=== PATIENT | female | born 1965 | race Caucasian/White ===

== ENCOUNTER 2023-08-08 07:47 | Outpatient (OUT) | payer BC, SELFPAY ==
[2023-08-08 10:14] LABS: Estimated Average Glucose 126 mg/dL
--- OUTSIDE RECORDS SUMMARY | 2023-08-31 00:03 | XMS_ITS | CCD ---
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 Role Phone JOSIE JASSO Attending Unavailable ROMERO, JOSIE Admitting Unavailable ROMERO, JOSIE Primary Care Unavailable ROMERO, JOSIE Consulting Unavailable ROMERO, JOSIE Attending Unavailable ROMERO, JOSIE Admitting Unavailable DR MELISA LEIGH V Consulting Unavailable ROMERO, JOSIE Primary Care Unavailable ROMERO, JOSIE Consulting Unavailable ROMERO, JOSIE Consulting Unavailable ROMERO, JOSIE Attending Unavailable ROMERO, JOSIE Admitting Unavailable ROMERO, JOSIE Primary Care Unavailable ROMERO, JOSIE Attending Unavailable ROMERO, JOSIE Admitting Unavailable ROMERO, JOSIE Primary Care Unavailable Problems Problem Classification Problem Date Documented Da te Episodic/Chronic Other screening for suspected conditions (not mental disorders or infectious disease) (8 sources) Encounter for screening mammogram for malignant neoplasm of breast; Translations: [Encounter for screening for malignant neoplasm of cervix] Onset: 08-11-2022 Episodic Residual codes; unclassified (1 source) Family history of malignant neoplasm of trachea, bronchus and lung; Translations: [FAM HX MALIG NEOPLSM TRACH BRON LNG] Onset: 09-10-2022 Episodic Residual codes; unclassified (1 source) Family history of malignant neoplasm of other organs or systems; Translations: [FAM HX MALIG NEOPLASM OTH ORGN/SYS] Onset: 09-10-2022 Episodic Thyroid disorders (4 sources) Hypothyroidism, unspecified; Translations: [HYPOTHYROIDISM UNSPECIFIED] Onset: 11-10-2022 Chronic Results Test Name Value Interpretation Reference Range Facil ity FREE THYROXINE INDEX T7on FTI 2.87 Normal 1.30-4.50 [facility] Comment on above: Performed By: #### T , T7 #### [facility] [address] [address] [address] Mirlande Dumas T3U 33.0 % Normal 30.0-39.0 [facility] Comment on above: Performed By: #### T SH, T7 #### [facility] [address] [place] [address] Dr. Mirlande Dumas T4 [Mass/Vol] 8.70 ug/dL Normal 4.80-13.90 [facility] Comment on above: Performed By: #### T SH, T7 #### [facility] [address] [place] [address] Dr. Mirlande Dumas TSHon 11-10-2022 TSH 1.531 uIU/mL Normal 0.358-3.740 The [facility] Comment on above: Performed By: #### T SH, T7 #### [facility] [address] [place] [address] Dr. Mirlande Dumas MG MAMM SCREEN 3D CUCA CADon 09-08-2022 MG MAMM SCREEN 3D CUCA CAD Patient: FABIAN DE LA CRUZ Exam Date: 09/08/2022 : 1965 Gender:F Ordering : JOSIE JASSO [facility] Admission #: [id number] Family : Order #: [id number] CLICK HERE TO VIEW EXAM RADIOLOGY REPORT PROCEDURE: MAMMOGRAM SCREENING 3D BILATERAL CAD COMPARISON: MG MAMM SCREEN CUCA W CAD, 09/03/2020. MG MAMM SCREEN 3D CUCA CAD, 09/07/2021. INDICATIONS: Screening mammography Calculator Name NCI Breast Cancer Risk Assessment Tool 5 Year Breast Cancer Risk 1.20% Lifetime Breast Cancer Risk 6.40% Personal Breast Cancer No Personal Ovarian Cancer No Treatments None Family Cancers Mother with lung cancer at age 84; Sister with skin cancer at age 50; Father with skin cancer at age 60. LOCATION: [facility] BREAST COMPOSITION: Heterogeneously dense,which may obscure small masses. FINDINGS: DIAGNOSTIC CATEGORY 1--NEGATIVE. NO CHANGE FROM COMPARISON ASSESSMENT. Scattered benign-appearing calcifications are present. Scattered benign-appearing lymph nodes are present. RIGHT BREAST: No significant suspicious finding. LEFT BREAST: No significant suspicious finding. RECOMMENDATIONS: ROUTINE MAMMOGRAM AND CLINICAL EVALUATION IN 12 MONTHS. PLEASE NOTE: A NORMAL MAMMOGRAM DOES NOT EXCLUDE THE POSSIBILITY OF BREAST CANCER. A CLINICALLY SUSPICIOUS PALPABLE LUMP SHOULD BE BIOPSIED. Dictated by: Melisa Leigh MD on 09/09/2022 at 08:08 Approved by: Melisa Leigh MD on 09/09/2022 at 08:[address] [facility] l PAP ACOG PANEL 2: 30 to 65on 08-18-2022 . . Normal [facility] Comment on above: Result Comment: Perf ormed at: WB Performed By: #### 4 [id number] #### [facility] [address] [address] [address] Mirlande Dumas Age Gdln ACOG Testing 30-65 Normal [facility] Comment on above: Performed By: #### 4 [id number] #### [facility] [address] [place] [address] Dr. Mirlande Dumas DIAGNOSIS: Comment Normal [facility] Comment on above: Result Comment: NEGA TIVE FOR INTRAEPITHELIAL LESION OR MALIGNANCY. Performed at: WB Performed By: #### 4 [id number] #### [facility] [address] [place] [address] Dr. Mirlande Dumas HPV Aptima Positive Abnormal Negative [facility] Comment on above: Result Comment: This nucleic acid amplification test detects fourteen high-risk HPV types (16,18,31,33,35,39,45,51,52,56,58,59,66,68) without differentiation. Performed at: =G Performed By: #### 4 [id number] #### [facility] [address] [place] [address] Dr. Mirlande Dumas HPV Genotype 16 Negative Normal Negative The [facility] Comment on above: Performed By: #### 4 [id number] #### [facility] [address] [address] [address] Mirlande Dumas HPV Genotype 18,45 Negative Normal Negative The [facility] Comment on above: Performed By: #### 4 [id number] #### [facility] [address] [place] [address] Dr. Mirlande uDmas HPV Genotype Reflex Comment Normal [facility] Comment on above: Result Comment: Osito k[place], see HPV Genotype results. Performed at: WB Performed By: #### 4 [id number] #### [facility] [address] [address] [address] Mirlande Dumas Methodology: Comment Normal [facility] Comment on above: Result Comment: This liquid based ThinPrep(R) pap test was screened with the use of an image guided system. Performed at: WB Performed By: #### 4 [id number] #### [facility] [address] [address] [address] Mirlande Dumas Note: Comment Normal [facility] Comment on above: Result Comment: The Pap smear is a screening test designed to aid in the detection of premalignant and malignant conditions of the uterine cervix. It is not a diagnostic procedure and should not be used as the sole means of detecting cervical cancer. Both false-positive and false-negative reports do occur. . Performed at: WB Performed By: #### 4 [id number] #### [facility] [address] [place] [address] Dr. Mirlande Dumas Performed by: Comment Normal [facility] Comment on above: Result Comment: Marita Caldera, Environmental Aid (ASCP) Performed at: WB Performed By: #### 4 [id number] #### [facility] [address] [place] [address] Dr. Mirlande Dumas Specimen adequacy: Comment Normal [facility] Comment on above: Result Comment: Sati sfactory for evaluation. Endocervical and/or squamous metaplastic cells (endocervical component) are present. Performed at: WB Performed By: #### 4 [id number] #### [facility] [address] [place] [address] Dr. Mirlande Dumas Encounters Encounter Date Encounter Type Care Provider Facility Start: 11-10-2022 End: 11-11-2022 ambulatory JOSIE JASSO Facility:[facility]1 Start: 09-08-2022 End: 09-09-2022 ambulatory JOSIE JASSO Facility:[facility] Start: 08-11-2022 End: 08-11-2022 ambulatory JOSIE JASSO Facility:[facility]1 Start: 02-11-2022 ambulatory JOSIE JASSO Facility: [facility]1 Payers Date Payer Category Payer Unknown [id number] 2.16.84 [id number] 1965 Unknown [id number] 2.16.84 [id number] 1965 Unknown [id number] 2.16.84 [id number] 1965 Unknown [id number] 2.16.84 [id number] 1961 Self-pay [id number] 1961 Unknown [id number] Summary Purpose Family History No Family History Records Found Advance Directives No Advanced Directives Records Found Additional Source Comments INFORMATION SOURCE (unrecogn ized section and content) DATE CREATED AUTHOR 11/16/2022 [facility] FOR RECORDS PERTAINING TO PATIENTS WHO ARE OR HAVE BEEN ENROLLED IN A CHEMICAL DEPENDENCY/SUBSTANCEABUSE PROGRAM, SOME INFORMATION MAY BE OMITTED. This clinical summary was aggregated from multiple sources. Caution should be exercised in using it in the provision of clinical care. This summary normalizes information from multiple sources, and as a consequence, information in this document may materially change the coding, format and clinical context of patient data. In addition, data may be omitted in some cases. CLINICAL DECISIONS SHOULD BE BASED ON THE PRIMARY CLINICAL RECORDS. [facility] [employer] [facility]. provides no warranty or guarantee of the accuracy or completeness of information in this document.
== END 2023-08-08 07:48 | disposition home or self-care (01) ==
LOC: LAB 07:48
PROVIDERS: PCP Nurse Practitioner Family; Visit Provider Nurse Practitioner Family
DX: E11.9 Type 2 diabetes mellitus without complications (principal)
CPT/HCPCS: 36415; 83036

== ENCOUNTER 2023-08-10 14:30 | Outpatient (REF) | payer BC, SELFPAY ==
[2023-08-13 20:07] LABS: Age Gdln ACOG Testing Note (.); HPV Aptima Negative (Negative); IGP, Aptima HPV, rfx 16/18,45 Note (.)
== END 2023-08-10 14:31 | disposition home or self-care (01) ==
LOC: LAB 14:30
PROVIDERS: PCP Nurse Practitioner Family; Visit Provider Nurse Practitioner Family
DX: Z01.419 Encounter for gynecological examination (general) (routine) without abnormal findings (principal)
CPT/HCPCS: 87624; G0145

== ENCOUNTER 2023-09-21 07:49 | Outpatient (OUT) | payer BC, SELFPAY ==
--- OUTSIDE RECORDS SUMMARY | 2023-09-21 07:51 | XMS_ITS | CCD ---
Author Name Unknown Address [address] [place] [address] Organization [facility] Care Team Providers Care Rn Telephonic Name Role Phone JOSIE JASSO Attending Unavailable [...] INDEX T7on FTI 2.87 Normal 1.30-4.50 [facility] Comment on above: Performed By: #### TSH, T7 #### [facility] [address] [address] [address] Mirlande Dumas T3U 33.0 % Normal 30.0-39.0 [facility] Comment on above: Performed By: #### TSH, T7 #### [facility] [address] [address] [address] Mirlande Dumas T4 [Mass/Vol] 8.70 ug/dL Normal 4.80-13.90 [facility] Comment on above: Performed By: #### TSH, T7 #### [facility] [address] [address] [address] Mirlande Dumas TSHon 11-10-2022 TSH 1.531 uIU/mL Normal 0.358-3.740 [facility] Comment on above: Performed By: #### TSH, T7 #### [facility] [address] [place] [address] Dr. Mirlande Dumas MG MAMM SCREEN 3D CUCA CADon 09-08-2022 MG MAMM SCREEN 3D CUCA CAD Patient: FABIAN DE LA CRUZ Exam Date: 09/08/2022 : 1965 Gender:F Ordering : JOSIE JASSO [facility] Admission #: [id number] Family : Order #: [id number] CLICK HERE TO VIEW EXAM RADIOLOGY REPORT [...] skin cancer at age 58. LOCATION: [facility] BREAST COMPOSITION: Heterogeneously dense,which may obscure small [...] Leigh MD on 09/09/2022 at 08:10 Normal [facility] PAP ACOG PANEL 2: 30 to 65on 08-18-2022 . . Normal [facility] Comment on above: Result Comment: Performed at: WB Performed By: #### 4 [id number] #### [facility] [address] [place] [address] Dr. Mirlande Dumas Age Gdln ACOG Testing 30-65 Normal [facility] Comment on above: Performed By: #### [id number] #### [facility] [address] [place] [address] Dr. Mirlande Dumas DIAGNOSIS: Comment Normal [facility] Comment on above: Result Comment: NEGATIVE FOR INTRAEPITHE LIAL LESION OR MALIGNANCY. Performed at: WB Performed By: #### 4 [id number] #### [facility] [address] [place] [address] Dr. Mirlande Dumas HPV Aptima Positive Abnormal Negative [facility] Comment on above: Result Comment: This nucleic acid amplif ication test detects fourteen high-risk HPV types (16,18,31,33,35,39,45,51,52,56,58,59,66,68) without differentiation. Performed at: =G Performed By: #### 4 [id number] #### [facility] [address] [place] [address] Dr. Mirlande Dumas HPV Genotype 16 Negative Normal Negative [facility] Comment on above: Performed By: #### [id number] #### [facility] [address] [place] [address] Dr. Mirlande Dumas HPV Genotype 18,45 Negative Normal Negative [facility] Comment on above: Performed By: #### [id number] #### [facility] [address] [place] [address] Dr. Mirlande Dumas HPV Genotype Reflex Comment Normal [facility] Comment on above: Result Comment: Criteria met, see HPV Ge notype results. Performed at: WB Performed By: #### 4 [id number] #### [facility] [address] [place] [address] Dr. Mirlande Dumas Methodology: Comment Normal [facility] Comment on above: Result Comment: This liquid based ThinPr ep(R) pap test was screened with the use of an image guided system. Performed at: WB Performed By: #### 4 [id number] #### [facility] [address] [address] [address] Mirlande Dumas Note: Comment Normal [facility] Comment on above: Result Comment: The Pap smear is a scree erasmo test designed to aid in the detection of premalignant and malignant conditions of the uterine cervix. It is not a diagnostic procedure and should not be used as the sole means of detecting cervical cancer. Both false-positive and false-negative reports do occur. . Performed at: WB Performed By: #### 4 [id number] #### [facility] [address] [place] [address] Dr. Mirlande Dumas Performed by: Comment Normal [facility] Comment on above: Result Comment: Marita Caldera, Cytotech nologist (ASCP) Performed at: WB Performed By: #### 4 [id number] #### [facility] [address] [address] [address] Mirlande Dumas Specimen adequacy: Comment [facility] Comment on above: Result Comment: Satisfactory for evaluat ion. Endocervical and/or squamous metaplastic cells (endocervical component) are present. Performed at: WB Performed By: #### 4 [id number] #### [facility] [address] [address] [address] Mirlande Dumas Encounters Encounter Date Encounter Type Care Provider Facility Start: 11-10-2022 End: 11-11-2022 ambulatory JOSIE BANNER Facility:[facility]1 Start: 09-08-2022 End: 09-09-2022 ambulatory JOSIE BANNER Facility:[facility]1 Start: 08-11-2022 End: 08-11-2022 ambulatory JOSIE BANNER Facility:[facility]1 Start: 02-11-2022 ambulatory JOSIE BANNER Facility: [facility]1 Payers Date Payer Category Payer Unknown [id number] 2.16.84 [id number] 1965 Unknown [id number] 2.16.84 [id number] 1965 Unknown [id number] 2.16.84 [id number] 1965 Unknown [id number] 2.16.84 [id number] 1961 Self-pay [id number] 1961 Unknown [id number] Summary Purpose Family History No Family History Records Found Advance Directives No Advanced Directives Records Found Additional Source Comments INFORMATION SOURCE (unrecogn ized section and content) DATE CREATED AUTHOR 11/16/2022 [facility] FOR RECORDS PERTAINING TO PATIENTS WHO ARE [...] BE BASED ON THE PRIMARY CLINICAL RECORDS. [facility]. provides no warranty or guarantee of the accuracy or completeness of information in this document.
--- NOTE | 2023-09-21 07:52 | MM_ITS ---
Patient Name: FABIAN DE LA CRUZ MR#: [id number] : 1965 Exam Date: 09/21/2023 Ordering Doctor: JOSIE JASSO CNP RADIOLOGY REPORT PROCEDURE: MM TOMOSYNTHESIS SCREENING BI COMPARISON: MG MAMM SCREEN 3D CUCA CAD, 09/08/2022. MG MAMM SCREEN 3D CUCA CAD, 09/07/2021. MG MAMM SCREEN CUCA W CAD, 09/03/2020. MG MAMM CUCA SCRN W CAD DIG, 04/20/2013. INDICATIONS: screening Calculator Name NCI Breast Cancer Risk Assessment Tool 5 Year Breast Cancer Risk 1.20% Lifetime Breast Cancer Risk 6.30% Personal Breast Cancer No Personal Ovarian Cancer No Treatments None Family Cancers Mother with lung cancer at age 84; Sister with skin cancer at age 50; Father with skin cancer at age 60. LOCATION: [facility] BREAST COMPOSITION: Heterogeneously dense,which may obscure small masses. FINDINGS: DIAGNOSTIC CATEGORY 2--BENIGN FINDING: RIGHT BREAST: No significant suspicious finding. No significant change has occurred. LEFT BREAST: No significant suspicious finding. Scattered benign-appearing lymph nodes are present. Stable biopsy marker clip posterior central breast. No significant change has occurred. RECOMMENDATIONS: ROUTINE MAMMOGRAM AND CLINICAL EVALUATION IN 12 MONTHS. PLEASE NOTE: A NORMAL MAMMOGRAM DOES NOT EXCLUDE THE POSSIBILITY OF BREAST CANCER. A CLINICALLY SUSPICIOUS PALPABLE LUMP SHOULD BE BIOPSIED. Dictated by: Jessee Morales M.D. on 09/21/2023 at 10:41 Approved by: Jessee Morales M.D. on 09/21/2023 at 10:44
== END 2023-09-21 07:50 | disposition home or self-care (01) ==
LOC: MAMMO 07:50
PROVIDERS: PCP Nurse Practitioner Family; Visit Provider Nurse Practitioner Family
DX: Z12.31 Encounter for screening mammogram for malignant neoplasm of breast (principal); Z80.1 Family history of malignant neoplasm of trachea, bronchus and lung; Z80.8 Family history of malignant neoplasm of other organs or systems
CPT/HCPCS: 77063; 77067

== ENCOUNTER 2024-02-24 07:29 | Outpatient (OUT) | payer BC, SELFPAY ==
--- OUTSIDE RECORDS SUMMARY | 2024-02-24 07:31 | XMS_ITS | CCD ---
Author Organization [facility] Care Team Providers Care Pharmacy Order Entry Technician Name Role Phone JOSIE JASSO Attending Unavailable [...] INDEX T7on FTI 2.87 Normal 1.30-4.50 The [facility] Comment on above: Performed By: #### TSH, T7 #### [facility] [address] [place], [place] [address] Dr. Mirlande Dumas T3U 33.0 % Normal 30.0-39.0 [facility] Comment on above: Performed By: #### TSH, T7 #### [facility] [address] [address] [address] Mirlande Dumas T4 [Mass/Vol] 8.70 ug/dL Normal 4.80-13.90 [facility] Comment on above: Performed By: #### TSH, T7 #### [facility] [address] [address] [address] Mirlande Dumas TSHon 11-10-2022 TSH 1.531 uIU/mL Normal 0.358-3.740 [facility] Comment on above: Performed By: #### TSH, T7 #### [facility] [address] [address] [address] Mirlande Dumas MG MAMM SCREEN 3D CUCA CADon 09-08-2022 MG MAMM SCREEN 3D CUCA CAD Patient: FABIAN DE LA CRUZ Exam Date: 09/08/2022 : 1965 Gender:F Ordering : JOSIE JASSO [facility] Admission #: [id number] Family : Order #: [id number] CLICK HERE TO VIEW EXAM RADIOLOGY REPORT [...] skin cancer at age 58. LOCATION: [facility] BREAST COMPOSITION: Heterogeneously dense,which may obscure [...] Leigh MD on 09/09/2022 at 08:10 Normal [facility] PAP ACOG PANEL 2: 30 to 65on 08-18-2022 . . Normal [facility] Comment on above: Result Comment: Performed at: WB Performed By: #### 4 [id number] #### [facility] [address] [address] [address] Mirlande Dumas Age Gdln ACOG Testing 30-65 Normal [facility] Comment on above: Performed By: #### [id number] #### [facility] [address] [address] [address] Mirlande Dumas DIAGNOSIS: Comment [facility] Comment on above: Result Comment: NEGATIVE FOR INTRAEPITHE LIAL LESION OR MALIGNANCY. Performed at: WB Performed By: #### 4 [id number] #### [facility] [address] [place] [address] Dr. Mirlande Dumas HPV Aptima Positive Abnormal Negative [facility] Comment on above: Result Comment: This nucleic acid amplif ication test detects fourteen high-risk HPV types (16,18,31,33,35,39,45,51,52,56,58,59,66,68) without differentiation. Performed at: =G Performed By: #### 4 [id number] #### [facility] [address] [place] [address] Dr. Mirlande Dumas HPV Genotype 16 Negative Normal Negative [facility] Comment on above: Performed By: #### [id number] #### [facility] [address] [address] [address] Mirlande Dumas HPV Genotype 18,45 Negative Normal Negative [facility] Comment on above: Performed By: #### [id number] #### [facility] [address] [address] [address] Mirlande Dumas HPV Genotype Reflex Comment Normal [facility] Comment on above: Result Comment: Criteria met, see HPV Ge notype results. Performed at: WB Performed By: #### 4 [id number] #### [facility] [address] [address] [address] Mirlande Dumas Methodology: Comment Normal [facility] Comment on above: Result Comment: This liquid based ThinPr ep(R) pap test was screened with the use of an image guided system. Performed at: WB Performed By: #### 4 [id number] #### [facility] [address] [place] [address] Dr. Mirlande Dumas Note: Comment [facility] Comment on above: Result Comment: The Pap smear is a scree erasmo test designed to aid in the detection of premalignant and malignant conditions of the uterine cervix. It is not a diagnostic procedure and should not be used as the sole means of detecting cervical cancer. Both false-positive and false-negative reports do occur. . Performed at: WB Performed By: #### 4 [id number] #### [facility] [address] [place] [address] Dr. Mirlande Dumas Performed by: Comment Normal [facility] Comment on above: Result Comment: Marita Caldera, Cytotech nologist (ASCP) Performed at: WB Performed By: #### 4 [id number] #### [facility] [address] [place] [address] Dr. Mirlande Dumas Specimen adequacy: Comment Normal [facility] Comment on above: Result Comment: Satisfactory for evaluat ion. Endocervical and/or squamous metaplastic cells (endocervical component) are present. Performed at: WB Performed By: #### 4 [id number] #### [facility] [address] [place] [address] Dr. Mirlande Dumas Encounters Encounter Date Encounter Type Care Provider Facility Start: 11-10-2022 End: 11-11-2022 ambulatory [facility] Facility:H1 Start: 09-08-2022 End: 09-09-2022 ambulatory [facility] Facility:H1 Start: 08-11-2022 End: 08-11-2022 ambulatory [facility] Facility:H1 Start: 02-11-2022 ambulatory [facility] Facility: H1 Payers Date Payer Category Payer Unknown [id number] 2.16.84 [id number] 1965 Unknown [id number] 2.16.84 [id number] 1965 Unknown [id number] 2.16.84 [id number] 1965 Unknown [id number] 2.16.84 [id number] 1961 Self-pay [id number] 1961 Unknown [id number] Summary Purpose Family History No Family History Records Found Advance Directives No Advanced Directives Records Found Additional Source Comments INFORMATION SOURCE (unrecogn ized section and content) DATE CREATED AUTHOR 11/16/2022 [facility] FOR RECORDS PERTAINING TO PATIENTS WHO [...] BE BASED ON THE PRIMARY CLINICAL RECORDS. [facility]. provides no warranty or guarantee of the accuracy or completeness of information in this document.
[2024-02-24 08:07] LABS: Basophils Percent Auto 0.2 % (0.2-2.0); Eosinophils Absolute Auto 0.1 10^3/uL (0.0-0.7); Eosinophils Percent Auto 1.2 % (0.9-7.0); Hematocrit 39.3 % (36.0-48.0); Hemoglobin 12.9 g/dL (12.0-16.0); Immature Granulocytes Abs Auto 0.04 10^3/uL (0.00-0.03); Immature Granulocytes Pct Auto 0.5 % (0.0-0.5); Lymphocytes Absolute Auto 2.1 10^3/uL (1.2-3.8); Lymphocytes Percent Auto 24.5 % (20.5-60.0); Mean Corpuscular HGB Conc 32.8 g/dL (29.9-35.2); Mean Corpuscular Hemoglobin 30.3 pg (26.7-34.0); Mean Corpuscular Volume 92.3 fL (81.0-99.0); Mean Platelet Volume 10.6 fL (9.5-13.5); Monocytes Absolute Auto 0.6 10^3/uL (0.3-0.8); Monocytes Percent Auto 7.4 % (1.7-12.0); Neutrophils Absolute Auto 5.7 10^3/uL (1.4-6.5); Neutrophils Percent Auto 66.2 % (43.0-75.0); Platelet Count 228 10^3/uL (150-450); Red Blood Count 4.26 10^6/uL (4.20-5.40); Red Cell Distribution Width 13.2 % (11.0-15.0); White Blood Count 8.7 10^3/uL (4.0-11.0)
[2024-02-24 08:14] LABS: Estimated Average Glucose 123 mg/dL; Glycohemoglobin A1C 5.9 % (4.5-6.2)
[2024-02-24 09:02] LABS: Alanine Aminotransferase 34 U/L (14-59); Albumin Globulin Ratio 0.9; Albumin Level 3.6 g/dL (3.4-5.0); Alkaline Phosphatase 125 U/L (46-116); Anion Gap 13.2; Aspartate Amino Transferase 19 U/L (15-37); BUN Creatinine Ratio 23.1; Bilirubin Total 1.4 mg/dL (0.2-1.0); Calcium 8.6 mg/dL (8.5-10.1); Chloride 104 mmol/L (98-107); Chol HDL Ratio 4.5; Cholesterol 194 mg/dL (<=200); Estimated GFR (African America >60 (>=60); Estimated GFR (Non-African Ame >60 (>=60); Free T3 2.06 pg/mL (2.18-3.98); Globulin 3.9 g/dL; Glucose 82 mg/dL (74-106); HDL Cholesterol 43 mg/dL (40-60); LDL Cholesterol Calculated 122.4 mg/dL; Potassium 3.2 mmol/L (3.5-5.1); Sodium 142 mmol/L (136-145); Thyroid Stimulating Hormone 2.179 uIU/mL (0.358-3.740); Total Protein 7.5 g/dL (6.4-8.2); Triglycerides 143 mg/dL (<=150); VLDL CHOLESTEROL 28.6 mg/dL
[2024-02-26 13:07] LABS: Insulin 23.3 uIU/mL (2.6-24.9)
== END 2024-02-24 07:30 | disposition home or self-care (01) ==
LOC: LAB 07:29
PROVIDERS: PCP Nurse Practitioner Family; Visit Provider Nurse Practitioner Family
DX: Z00.00 Encounter for general adult medical examination without abnormal findings (principal)
CPT/HCPCS: 36415; 80053; 80061; 83036; 83525; 84436; 84443; 84481; 85025

== ENCOUNTER 2024-03-01 07:38 | Outpatient (OUT) | payer BC, SELFPAY ==
--- OUTSIDE RECORDS SUMMARY | 2024-03-01 07:42 | XMS_ITS ---
Patient Summarization (C-CDA 2.1 CCD) Created on: March 01, 2024 FABIAN DE LA CRUZ : 1965 Sex: Female Author Organization Sample organization Care Team Providers Care Oil House Attendant Name Role Phone ROMERO, JOSIE Attending Unavailable ROMERO, JOSIE Admitting [...] Admitting Unavailable ROMERO, JOSIE Primary Care Unavailable Encounters Encounter Date Encounter Type Care Provider Facility Start: 11-10-2022 End: 11-11-2022 ambulatory JOSIE ROMERO Facility:H1 Start: 09-08-2022 End: 09-09-2022 ambulatory JOSIE ROMERO Facility:H1 Start: 08-11-2022 End: 08-11-2022 ambulatory JOSIE ROMERO Facility:H1 Start: 02-11-2022 ambulatory JOSIE ROMERO Facility: [facility]1 Payers Date Payer Category Payer Unknown [id number] 10.28.83 [id number] 1965 Unknown [id number] 1965 Unknown [id number] 10.28.84 [id number] 1965 Unknown [id number] 10.28.84 [id number] 1961 Self-pay [id number] 1961 Unknown [id number] Problems Problem Classification Problem Date Documented Da [...] THYROXINE INDEX T7on FTI 2.87 Normal 1.30-4.50 [facility] Comment on above: Performed By: #### TSH, T7 #### [facility] [address] [place] [address] Dr. Mirlande Dumas T3U 33.0 % Normal 30.0-39.0 [facility] Comment on above: Performed By: #### TSH, T7 #### [facility] [address] [place] [address] Dr. Mirlande Dumas T4 [Mass/Vol] 8.70 ug/dL Normal 4.80-13.90 [facility] Comment on above: Performed By: #### TSH, T7 #### [facility] [address] [place] [address] Dr. Mirlande Dumas TSHon 11-10-2022 TSH 1.531 uIU/mL Normal 0.358-3.740 [facility] Comment on above: Performed By: #### TSH, T7 #### [facility] [address] [place] [address] Dr. Mirlande Dumas MG MAMM SCREEN 3D CUCA CADon 09-08-2022 MG MAMM SCREEN 3D CUCA CAD Patient: FABIAN DE LA CRUZ Exam Date: 09/08/2022 : 1965 Gender:F Ordering : JOSIE JASSO [facility] Admission #: [id number] Family : Order #: [id number] CLICK HERE TO VIEW EXAM RADIOLOGY REPORT [...] skin cancer at age 58. LOCATION: [facility] BREAST COMPOSITION: Heterogeneously dense,which may obscure small [...] Leigh MD on 09/09/2022 at 08:10 Normal [facility] PAP ACOG PANEL 2: 30 to 65on 08-18-2022 . . Normal [facility] Comment on above: Result Comment: Performed at: WB Performed By: #### [id number] #### [facility] [address] [address] [address] Mirlande Dumas Age Gdln ACOG Testing 30-65 Normal [facility] Comment on above: Performed By: #### [id number] #### [facility] [address] [id number] Mirlande Dumas DIAGNOSIS: Comment Normal [facility] Comment on above: Result Comment: NEGATIVE FOR INTRAEPITHE LIAL LESION OR MALIGNANCY. Performed at: WB Performed By: #### [id number] #### [facility] [address] [place], [place] [address] Dr. Mirlande Dumas HPV Aptima Positive Abnormal Negative [facility] Comment on above: Result Comment: This nucleic acid amplif ication test detects fourteen high-risk HPV types (16,18,31,33,35,39,45,51,52,56,58,59,66,68) without differentiation. Performed at: =G Performed By: #### [id number] #### [facility] [address] [place] [address] Dr. Mirlande Dumas HPV Genotype 16 Negative Normal Negative [facility] Comment on above: Performed By: #### [id number] #### [facility] [address] [place] [address] Dr. Mirlande Dumas HPV Genotype 18,45 Negative Normal Negative [facility] Comment on above: Performed By: #### [id number] #### [facility] [address] [place] [address] Dr. Mirlande Dumas HPV Genotype Reflex Comment Normal [facility] Comment on above: Result Comment: Criteria met, see HPV Ge notype results. Performed at: WB Performed By: #### 4 [id number] #### [facility] [address] [place] [address] Dr. Mirlande Dumas Methodology: Comment Normal [facility] Comment on above: Result Comment: This liquid based ThinPr ep(R) pap test was screened with the use of an image guided system. Performed at: WB Performed By: #### [id number] #### [facility] [address] [place] [address] Dr. Mirlande Dumas Note: Comment Normal [facility] Comment on above: Result Comment: The Pap smear is a scree erasmo test designed to aid in the detection of premalignant and malignant conditions of the uterine cervix. It is not a diagnostic procedure and should not be used as the sole means of detecting cervical cancer. Both false-positive and false-negative reports do occur. . Performed at: WB Performed By: #### [id number] #### [facility] [address] [place] [address] Dr. Mirlande Dumas Performed by: Comment Normal [facility] Comment on above: Result Comment: Marita Caldera, Cytotech nologist (ASCP) Performed at: WB Performed By: #### 4 [id number] #### [facility] [address] [place] [address] Dr. Mirlande Dumas Specimen adequacy: Comment Normal [facility] Comment on above: Result Comment: Satisfactory for evaluat ion. Endocervical and/or squamous metaplastic cells (endocervical component) are present. Performed at: WB Performed By: #### [id number] #### [facility] [address] [address] [address] Mirlande Dumas Summary Purpose Family History No Family History Records Found Advance Directives No Advanced Directives Records Found Additional Source Comments INFORMATION SOURCE (unrecogn ized section and content) DATE CREATED AUTHOR 11/16/2022 [facility] FOR RECORDS PERTAINING TO PATIENTS WHO [...] BE BASED ON THE PRIMARY CLINICAL RECORDS. [employer] provides no warranty or guarantee of the accuracy or completeness of information in this document.
[2024-03-01 15:41] LABS: Internal Control Within Normal Limits; Occult Blood Negative
== END 2024-03-01 07:39 | disposition home or self-care (01) ==
LOC: LAB 07:39
PROVIDERS: PCP Nurse Practitioner Family; Visit Provider Nurse Practitioner Family
DX: Z00.00 Encounter for general adult medical examination without abnormal findings (principal)
CPT/HCPCS: G0328

== ENCOUNTER 2024-03-12 08:14 | Outpatient (OUT) | payer BC, SELFPAY ==
--- OUTSIDE RECORDS SUMMARY | 2024-03-12 08:21 | XMS_ITS | CCD ---
Author Organization [facility] Care Team Providers Care Seam Steamer Name Role Phone JOSIE JASSO Attending Unavailable [...] THYROXINE INDEX T7on FTI 2.87 Normal 1.30-4.50 [facility] Comment on above: Performed By: #### TSH, T7 #### [facility] [address] [place], [place] [address] Dr. Mirlande Dumas T3U 33.0 % Normal 30.0-39.0 [facility] Comment on above: Performed By: #### TSH, T7 #### [facility] [address] [address] [address] Mirlande Dumas T4 [Mass/Vol] 8.70 ug/dL Normal 4.80-13.90 [facility] Comment on above: Performed By: #### TSH, T7 #### [facility] [address] [address] [address] Mirlande Dumas TSHon 11-10-2022 TSH 1.531 uIU/mL Normal 0.358-3.740 [facility] Comment on above: Performed By: #### TSH, T7 #### [facility] [address] [address] [address] Mirlande Dumas MG MAMM SCREEN 3D CUCA CADon 09-08-2022 MG MAMM SCREEN 3D CUCA CAD Patient: FABIAN DE LA CRUZ Exam Date: 09/08/2022 : 1965 Gender:F Ordering : JOSIE JASSO [facility] Admission #: [id number] Family : Order #: [id number] CLICK HERE TO VIEW EXAM RADIOLOGY REPORT [...] skin cancer at age 58. LOCATION: [facility] BREAST COMPOSITION: Heterogeneously dense,which may obscure [...] Leigh MD on 09/09/2022 at 08:10 Normal [facility] PAP ACOG PANEL 2: 30 to 65on 08-18-2022 . . Normal [facility] Comment on above: Result Comment: Performed at: WB Performed By: #### [id number] #### [facility] [address] [address] [address] Mirlande Dumas Age Gdln ACOG Testing 30-65 Normal [facility] Comment on above: Performed By: #### [id number] #### [facility] [address] [address] [address] Mirlande Dumas DIAGNOSIS: Comment Normal [facility] Comment on above: Result Comment: NEGATIVE FOR INTRAEPITHE LIAL LESION OR MALIGNANCY. Performed at: WB Performed By: #### 4 [id number] #### [facility] [address] [place] [address] Dr. Mirlande Dumas HPV Aptima Positive Abnormal Negative [facility] Comment on above: Result Comment: This nucleic acid amplif ication test detects fourteen high-risk HPV types (16,18,31,33,35,39,45,51,52,56,58,59,66,68) without differentiation. Performed at: =G Performed By: #### 4 [id number] #### [facility] [address] [place] [address] Dr. Mirlande Dumas HPV Genotype 16 Negative Normal Negative [facility] Comment on above: Performed By: #### [id number] #### [facility] [address] [address] [address] Mirlande Dumas HPV Genotype 18,45 Negative Normal Negative [facility] Comment on above: Performed By: #### [id number] #### [facility] [address] [address] [address] Mirlande Dumas HPV Genotype Reflex Comment Normal [facility] Comment on above: Result Comment: Criteria met, see HPV Ge notype results. Performed at: WB Performed By: #### 4 [id number] #### [facility] [address] [address] [address] Mirlande Dumas Methodology: Comment Normal [facility] Comment on above: Result Comment: This liquid based ThinPr ep(R) pap test was screened with the use of an image guided system. Performed at: WB Performed By: #### 4 [id number] #### [facility] [address] [place] [address] Dr. Mirlande Dumas Note: Comment [facility] Comment on above: Result Comment: The Pap smear is a scree erasmo test designed to aid in the detection of premalignant and malignant conditions of the uterine cervix. It is not a diagnostic procedure and should not be used as the sole means of detecting cervical cancer. Both false-positive and false-negative reports do occur. . Performed at: WB Performed By: #### 4 [id number] #### [facility] [address] [place] [address] Dr. Mirlande Dumas Performed by: Comment Normal [facility] Comment on above: Result Comment: Marita Caldera, Cytotech nologist (ASCP) Performed at: WB Performed By: #### 4 [id number] #### [facility] [address] [place] [address] Dr. Mirlande Dumas Specimen adequacy: Comment Normal [facility] Comment on above: Result Comment: Satisfactory for evaluat ion. Endocervical and/or squamous metaplastic cells (endocervical component) are present. Performed at: WB Performed By: #### 4 [id number] #### [facility] [address] [place] [address] Dr. Mirlande Dumas Encounters Encounter Date Encounter Type Care Provider Facility Start: 11-10-2022 End: 11-11-2022 ambulatory [facility] Facility:H1 Start: 09-08-2022 End: 09-09-2022 ambulatory [facility] Facility:H1 Start: 08-11-2022 End: 08-11-2022 ambulatory [facility] Facility:H1 Start: 02-11-2022 ambulatory [facility] Facility: H1 Payers Date Payer Category Payer Unknown [id number] 2.16.84 [id number] 1965 Unknown [id number] 2.16.84 [id number] 1965 Unknown [id number] 2.16.84 [id number] 1965 Unknown [id number] 2.16.84 [id number] 1961 Self-pay [id number] 1961 Unknown [id number] Summary Purpose Family History No Family History Records Found Advance Directives No Advanced Directives Records Found Additional Source Comments INFORMATION SOURCE (unrecogn ized section and content) DATE CREATED AUTHOR 11/16/2022 [facility] FOR RECORDS PERTAINING TO PATIENTS WHO ARE [...] BE BASED ON THE PRIMARY CLINICAL RECORDS. [employer] [facility]. provides no warranty or guarantee of the accuracy or completeness of information in this document.
[2024-03-12 09:15] LABS: Alanine Aminotransferase 36 U/L (14-59); Albumin Globulin Ratio 0.8; Albumin Level 3.7 g/dL (3.4-5.0); Alkaline Phosphatase 123 U/L (46-116); Anion Gap 14.9; Aspartate Amino Transferase 25 U/L (15-37); BUN Creatinine Ratio 23.3; Bilirubin Total 1.3 mg/dL (0.2-1.0); Carbon Dioxide 27.3 mmol/L (21.0-32.0); Chloride 102 mmol/L (98-107); Estimated GFR (African America >60 (>=60); Estimated GFR (Non-African Ame >60 (>=60); Free T3 2.25 pg/mL (2.18-3.98); Globulin 4.4 g/dL; Glucose 131 mg/dL (74-106); Potassium 3.2 mmol/L (3.5-5.1); Sodium 141 mmol/L (136-145); Thyroid Stimulating Hormone 1.162 uIU/mL (0.358-3.740); Total Protein 8.1 g/dL (6.4-8.2)
== END 2024-03-12 08:15 | disposition home or self-care (01) ==
LOC: LAB 08:15
PROVIDERS: PCP Nurse Practitioner Family; Visit Provider Nurse Practitioner Family
DX: E03.9 Hypothyroidism, unspecified (principal); E87.6 Hypokalemia
CPT/HCPCS: 36415; 80053; 84439; 84443; 84481

== ENCOUNTER 2024-04-02 07:34 | Outpatient (OUT) | payer BC, SELFPAY ==
--- OUTSIDE RECORDS SUMMARY | 2024-04-02 07:39 | XMS_ITS | CCD ---
Author Organization [facility]form [facility] Care Team Providers Care Restaurant Bartender Name Role Phone JOSIE JASSO Attending Unavailable [...] THYROXINE INDEX T7on FTI 2.87 Normal 1.30-4.50 [facility] Comment on above: Performed By: #### TSH, T7 #### [facility] [address] [place], [place] [address] Dr. Mirlande Dumas T3U 33.0 % Normal 30.0-39.0 [facility] Comment on above: Performed By: #### TSH, T7 #### [facility] [address] [address] [address] Mirlande Dumas T4 [Mass/Vol] 8.70 ug/dL Normal 4.80-13.90 [facility] Comment on above: Performed By: #### TSH, T7 #### [facility] [address] [address] [address] Mirlande Dumas TSHon 11-10-2022 TSH 1.531 uIU/mL Normal 0.358-3.740 [facility] Comment on above: Performed By: #### TSH, T7 #### [facility] [address] [address] [address] Mirlande Dumas MG MAMM SCREEN 3D CUCA CADon 09-08-2022 MG MAMM SCREEN 3D CUCA CAD Patient: FABIAN DE LA CRUZ Exam Date: 09/08/2022 : 1965 Gender:F Ordering : JOSIE JASSO [facility] Admission #: [id number] Family : Order #: [id number] CLICK HERE TO VIEW EXAM RADIOLOGY REPORT [...] skin cancer at age 58. LOCATION: [facility] BREAST COMPOSITION: Heterogeneously dense,which may obscure [...] Leigh MD on 09/09/2022 at 08:10 Normal [facility] PAP ACOG PANEL 2: 30 to 65on 08-18-2022 . . Normal [facility] Comment on above: Result Comment: Performed at: WB Performed By: #### [id number] #### [facility] [address] [address] [address] Mirlande Dumas Age Gdln ACOG Testing 30-65 Normal [facility] Comment on above: Performed By: #### [id number] #### [facility] [address] [address] [address] Mirlande Dumas DIAGNOSIS: Comment Normal [facility] Comment on above: Result Comment: NEGATIVE FOR INTRAEPITHE LIAL LESION OR MALIGNANCY. Performed at: WB Performed By: #### 4 [id number] #### [facility] [address] [place] [address] Dr. Mirlande Dumas HPV Aptima Positive Abnormal Negative [facility] Comment on above: Result Comment: This nucleic acid amplif ication test detects fourteen high-risk HPV types (16,18,31,33,35,39,45,51,52,56,58,59,66,68) without differentiation. Performed at: =G Performed By: #### [id number] #### [facility] [address] [place] [address] Dr. Mirlande Dumas HPV Genotype 16 Negative Normal Negative [facility] Comment on above: Performed By: #### [id number] #### [facility] [address] [address] [address] Mirlande Dumas HPV Genotype 18,45 Negative Normal Negative [facility] Comment on above: Performed By: #### [id number] #### [facility] [address] [address] [address] Mirlande Dumas HPV Genotype Reflex Comment Normal [facility] Comment on above: Result Comment: Criteria met, see HPV Ge notype results. Performed at: WB Performed By: #### 4 [id number] #### [facility] [address] [address] [address] Mirlande Dumas Methodology: Comment Normal [facility] Comment on above: Result Comment: This liquid based ThinPr ep(R) pap test was screened with the use of an image guided system. Performed at: WB Performed By: #### 4 [id number] #### [facility] [address] [place] [address] Dr. Mirlande Dumas Note: Comment [facility] Comment on above: Result Comment: The Pap smear is a scree erasmo test designed to aid in the detection of premalignant and malignant conditions of the uterine cervix. It is not a diagnostic procedure and should not be used as the sole means of detecting cervical cancer. Both false-positive and false-negative reports do occur. . Performed at: WB Performed By: #### 4 [id number] #### [facility] [address] [place] [address] Dr. Mirlande Dumas Performed by: Comment Normal [facility] Comment on above: Result Comment: Marita Caldera, Cytotech nologist (ASCP) Performed at: WB Performed By: #### 4 [id number] #### [facility] [address] [place] [address] Dr. Mirlande Dumas Specimen adequacy: Comment Normal [facility] Comment on above: Result Comment: Satisfactory for evaluat ion. Endocervical and/or squamous metaplastic cells (endocervical component) are present. Performed at: WB Performed By: #### 4 [id number] #### [facility] [address] [place] [address] Dr. Mirlande Dumas Encounters Encounter Date Encounter Type Care Provider Facility Start: 11-10-2022 End: 11-11-2022 ambulatory [facility] Facility:[facility]1 Start: 09-08-2022 End: 09-09-2022 ambulatory [facility] Facility:[facility]1 Start: 08-11-2022 End: 08-11-2022 ambulatory [facility] Facility:H1 Start: 02-11-2022 ambulatory [facility] Facility: H1 Payers Date Payer Category Payer Unknown [id number] 2.16.84 [id number] 1965 Unknown [id number] 2.16.84 [id number] 1965 Unknown [id number] 2.16.84 [id number] 1965 Unknown [id number] 2.16.84 [id number] 1961 Self-pay [id number] 1961 Unknown [id number] Summary Purpose Family History No Family History Records Found Advance Directives No Advanced Directives Records Found Additional Source Comments INFORMATION SOURCE (unrecogn ized section and content) DATE CREATED AUTHOR 11/16/2022 [facility] FOR RECORDS PERTAINING TO PATIENTS WHO ARE [...] BE BASED ON THE PRIMARY CLINICAL RECORDS. [employer] [facility]. provides no warranty or guarantee of the accuracy or completeness of information in this document.
[2024-04-02 08:57] LABS: Alanine Aminotransferase 31 U/L (14-59); Albumin Globulin Ratio 0.9; Albumin Level 3.6 g/dL (3.4-5.0); Alkaline Phosphatase 128 U/L (46-116); Anion Gap 13.5; Aspartate Amino Transferase 21 U/L (15-37); BUN Creatinine Ratio 26.7; Bilirubin Total 0.9 mg/dL (0.2-1.0); Calcium 9.1 mg/dL (8.5-10.1); Chloride 104 mmol/L (98-107); Estimated GFR (African America >60 (>=60); Estimated GFR (Non-African Ame >60 (>=60); Globulin 3.8 g/dL; Glucose 95 mg/dL (74-106); Potassium 3.5 mmol/L (3.5-5.1); Sodium 142 mmol/L (136-145); Total Protein 7.4 g/dL (6.4-8.2)
== END 2024-04-02 07:35 | disposition home or self-care (01) ==
LOC: LAB 07:36
PROVIDERS: PCP Nurse Practitioner Family; Visit Provider Nurse Practitioner Family
DX: E87.6 Hypokalemia (principal)
CPT/HCPCS: 36415; 80053

== ENCOUNTER 2024-09-26 07:53 | Outpatient (OUT) | payer BC, SELFPAY ==
--- OUTSIDE RECORDS SUMMARY | 2024-09-26 07:57 | XMS_ITS | CCD ---
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 Name Role Phone JOSIE JASSO Attending [...] Admitting Unavailable ROMERO, JOSIE Primary Care Unavailable DAVID LI Attending Unavailable CULLEN REYES Referring Unavailable HOY, CULLEN M Primary Care Unavailable GUILLERMODAVID STORY Referring Unavailable CULLEN REYES M Primary Care Unavailable DAVID LI Referring Unavailable AMY, CULLEN M Primary Care Unavailable PETKERON, MELLY A Attending Unavailable PETITTJagdish, MELLY A Attending Unavailable AKMRYN GARCIA Attending Unavailable PETITTI, MELLY A Attending Unavailable PETITTI, MELLY A Attending Unavailable Unavailable Primary Care Provider Unavailabl e Allergies Allergy Classification Reported Allergen(s) Allergy Type Date of Onset Reaction(s) Facility (15 sources) Azithromycin; Translations: [AZITHROMYCIN] Drug Allergy 4 [facility] (15 sources) Penicillins; Translations: [PENICILLINS] Propensity to adverse reactions to drug (disorder) [facility] Medications Current Medications Medication Drug Class(es) Dates Sig (Normalized) Sig (Original) eluxadoline 100 mg oral tablet (12 sources) mu-Opioid Receptor Agonist Start: 02-16-20 take 1 tablet by mouth at mealtime Viberzi 100 MG tablet Take 1 tablet by mouth Take with food. 02/16/2024 Active glipiZIDE 5 mg oral tablet (12 sources) Sulfonylurea Start: 02-15-20 take 1 tablet by mouth in the morning glipiZIDE (Glucotrol) 5 MG tablet Take 5 mg by mouth in the morning and 5 mg in the evening. Take with meals. 02/15/2024 Active hydroCHLOROthiazide 25 mg oral tablet (12 sources) Thiazide Diuretic Start: 03-13-20 hydroCHLOROthiazide (HYDRODiuril) 25 MG tablet 03/13/2024 Active levothyroxine sodium 0.075 mg oral tablet (12 sources) l-Thyroxine Start: 02-21-20 take 1 tablet by mouth in the morning levothyroxine (Synthroid, Levoxyl) 75 MCG tablet Take 75 mcg by mouth in the morning. Take on an empty stomach.. 02/21/2024 Active losartan potassium 100 mg oral tablet (12 sources) Angiotensin 2 Receptor Tenisha Start: 02-15-20 take 1 tablet by mouth once daily losartan (Cozaar) 100 MG tablet Take 100 mg by mouth Daily 02/15/2024 Active lovastatin 10 mg oral tablet (12 sources) HMG-CoA Reductase Inhibitor Start: 02-15-20 take 1 tablet by mouth at mealtime lovastatin (Mevacor) 10 MG tablet Take 10 mg by mouth in the evening. Take with meals 02/15/2024 Active 24 hr metFORMIN hydrochloride 500 mg extended release oral tablet (12 sources) Biguanide Start: 03-13-20 metFORMIN XR (Glucophage-XR) 500 MG 24 hr tablet 03/13/2024 Active Ozempic, 0.25 or 0.5 MG/DOSE, 2 MG/3ML solution pen-injector (12 sources) Start: 03-12-20 inject 0.5 mg by subcutaneous injection every week Ozempic, 0.25 or 0.5 MG/DOSE, 2 MG/3ML solution pen-injector INJECT 0.5mg SUBCUTANEOUSLY ONCE A WEEK 03/12/2024 Active microencapsulated potassium chloride 10 meq extended release oral tablet (12 sources) Start: 03-12-20 potassium chloride CR (Klor-Con M10) 10 MEQ ER tablet Take 10 mEq by mouth Take with food. 03/12/2024 Active triamcinolone acetonide 1 mg/ml topical cream (12 sources) Corticosteroid Start: 03-20-20 triamcinolone (Kenalog) 0.1 % cream Indications: Venous stasis dermatitis Apply topically 2 (two) times a day as needed for rash 240 g 11 03/20/2024 Active Problems Active Problems Problem Classification Problem Date Documented Date Episodic/Chronic Immunizations and screening for infectious disease (3 sources) Encounter for screening for infections with a predominantly sexual mode of transmission; Translations: [Encounter for screening for infections with a predominantly sexual mode of transmission] Onset: 04-24-2024 Episodic Other aftercare (4 sources) Removal of sutures done; Translations: [Encounter for removal of sutures] 06-13-2024 Episodic Other non-epithelial cancer of skin (2 sources) Basal cell carcinoma of truncal skin; Translations: [Basal cell carcinoma of skin of other part of trunk] 05-30-2024 Episodic Other screening for suspected conditions (not mental [...] unspecified; Translations: [HYPOTHYROIDISM UNSPECIFIED] Onset: 11-10-2022 Chronic Unclassified (1 source) Screening for STD Onset: 04-24-2024 Past or Other Problems Problem Classification Problem Date Documented Da te Episodic/Chronic Neoplasms of unspecified nature or uncertain behavior (2 sources) Neoplasm of uncertain behavior of skin of back; Translations: [Neoplasm of uncertain behavior of skin] 05-02-2024 Episodic Results Test Name Value Interpretation Reference Range Facility No Panel Informationon 05-30 Lesion length (cm): 1.7 Lesion width (cm): 1.3 Margin per side (cm): 0.4 Total excision diameter (cm): 2.5 Informed consent: discussed and consent obtained Informed consent comment: Risks and possible complications were discussed as noted on the consent form. The consent form was signed prior to the procedure. Timeout: patient name, date of , surgical site, and procedure verified Timeout comment: Patient and provider identified site. Site was marked and excision was drawn out. Photo was taken and shown to patient, patient verified this is the correct site. Procedure prep: Patient was prepped and draped in usual sterile fashion (The planned incision lines were drawn along relaxed skin tension lines, if possible, to minimize scarring and deformity of surrounding structures.) Prep type: Chlorhexidine Anesthesia: the lesion was anesthetized in a standard fashion Anesthesia comment: The local anesthetic was injected to create a field block at the site of the procedure. Anesthetic: 1% lidocaine w/ epinephrine 1-100,000 buffered w/ 8.4% NaHCO3 Instrument used: #15 blade Instrument used comment: Incisions were made as drawn, and the surrounding tissue was undermined until the skin edges could be approximated without undue tension. Any tissue redundancies were removed. Hemostasis achieved with: electrodesiccation Additional details: Amount of lidocaine used: 18 ml Estimated blood loss: < 1.0 ml [facility] Complexity: Intermediate Final length (cm): 5.2 Reason for type of repair: allow closure of the large defect Undermining: edges undermined Undermining comment: The surrounding tissue was undermined until the skin edges could be approximated without undue tension. Any tissue redundancies were removed. Subcutaneous layers (deep stitches): Suture size: 3-0 Suture type comment: Biosyn Stitches: Buried horizontal mattress (Closure was performed in a layered fashion with subcutaneous tissue closed first using tension-bearing absorbable sutures to the level of the superficial fascia.) Fine/surface layer approximation (top stitches): Suture size: 4-0 Suture type: Prolene (polypropylene) Stitches: simple running Stitches comment: Epicuticular skin sutures were then placed with minimal tension. Suture removal (days): 14 Outcome: patient tolerated procedure well with no complications Post-procedure details: sterile dressing applied and wound care instructions given Post-procedure details comment: It was emphasized to the patient to contact the office for any signs of infection, uncontrollable bleeding, or complications. Dressing type: bandage [facility] Panel Informationon 05-02 Complexity: Intermediate Final length (cm): 3 Reason for type of repair: allow closure of the large defect Undermining: edges undermined Undermining comment: The surrounding tissue was undermined until the skin edges could be approximated without undue tension. Any tissue redundancies were removed. Subcutaneous layers (deep stitches): Suture size: 3-0 Suture type comment: Biosyn Stitches: Buried horizontal mattress (Closure was performed in a layered fashion with subcutaneous tissue closed first using tension-bearing absorbable sutures to the level of the superficial fascia.) Fine/surface layer approximation (top stitches): Suture size: 4-0 Suture type: Prolene (polypropylene) Stitches: simple running Stitches comment: Epicuticular skin sutures were then placed with minimal tension. Suture removal (days): 14 Outcome: patient tolerated procedure well with no complications Post-procedure details: sterile dressing applied and wound care instructions given Post-procedure details comment: It was emphasized to the patient to contact the office for any signs of infection, uncontrollable bleeding, or complications. Dressing type: bandage [facility] Lesion length (cm): 0.5 Lesion width (cm): 0.4 Margin per side (cm): 0.5 Total excision diameter (cm): 1.5 Informed consent: discussed and consent obtained Informed consent comment: Risks and possible complications were discussed as noted on the consent form. The consent form was signed prior to the procedure. Timeout: patient name, date of , surgical site, and procedure verified Timeout comment: Patient and provider identified site. Site was marked and excision was drawn out. Photo was taken and shown to patient, patient verified this is the correct site. Procedure prep: Patient was prepped and draped in usual sterile fashion (The planned incision lines were drawn along relaxed skin tension lines, if possible, to minimize scarring and deformity of surrounding structures.) Prep type: Chlorhexidine Anesthesia: the lesion was anesthetized in a standard fashion Anesthesia comment: The local anesthetic was injected to create a field block at the site of the procedure. Anesthetic: 1% lidocaine w/ epinephrine 1-100,000 buffered w/ 8.4% NaHCO3 Instrument used: #15 blade Instrument used comment: Incisions were made as drawn, and the surrounding tissue was undermined until the skin edges could be approximated without undue tension. Any tissue redundancies were removed. Hemostasis achieved with: electrodesiccation Additional details: Amount of lidocaine used: 4.0 ml Estimated blood loss: <1.0 ml [facility] No Panel InformationOrdered By: Kennedi Mario on 05-02-2024 [facility] ACUTE HEPATITIS PANELon 04-12 ANTI HCV W/PCR REFLX Non-Reactive Normal NRCT Pr [facility] Comment on above: Result Comment: If recent infection suspected, recommend repeat testing (>2 months). Zzqvkr-oz-ldcpyi ratio is <0.80. Performed By: #### A , 11279-2, 52014-7 #### [facility] ([id number]) [address], [address] [place] [address] HEPATITIS A IGM Non-Reactive Normal NRCT [facility] Comment on above: Performed By: #### [place], 43002-6, 53923-2 #### [facility] ([id number]) [address], [address] [place] [address] HEPATITIS B CORE IGM Negative Normal NEG [facility] Comment on above: Performed By: #### [place], 35842-4, 28617-9 #### [facility] ([id number]) [address], [address] [place] [address] HEPATITIS B SURF AG Negative Normal NEG [facility] Comment on above: Performed By: #### [place], 81008-5, 87851-8 #### [facility] ([id number]) [address], [address] [place] [address] CHLAMYDIA/GC BY PCRon 2023 CHLAMYDIA/GC BY PCR SPECIMEN SOURCE CERVIX CHLAMYDIA DNA(PCR) Negative (qualifier value) Chlamydia trachomatis not detected by nucleic acid amplification. This does not exclude the possibility of infection because results are dependent on adequate specimen collection. GONORRHOEAE DNA(PCR) Negative (qualifier value) Neisseria gonorrhoeae not detected by nucleic acid amplification. This does not exclude the possibility of infection because results are dependent on adequate specimen collection. Normal [facility] Comment on above: Performed By: #### C GS #### [facility] ([id number]) [address] [place] [address] HIV 1+2 Ab+HIV1 p24 Ag IA Ql on 04-24-2024 HIV 1 and 2 Ab/Ag Screen Non-Reactive Normal NRCT [facility] Comment on above: Result Comment: This information has been disclosed to you from confidential records protected from disclosure by state law. You shall make no further disclosure of this information without the specific, written and informed release of the individual to whom it pertains, or as otherwise permitted by state law. A general authorization for the release of medical or other information is not sufficient for the purpose of the release of HIV test results or diagnoses. Performed By: #### A , 35879-9, 44105-1 #### [facility] ([id number]) [address] [place] [address] T. pallidum IgG+IgM IA Ql (S )on 04-24-2024 Syphilis Total <0.2 Normal 0.0-0.8 [facility] Comment on above: Result Comment: NON REACTIVE No serologic evidence of infection to Treponema pallidum (syphilis). Repeat testing may be considered in patients with suspected acute or primary syphilis in 2 to 4 weeks. Performed By: #### A , 49953-1, 70243-7 #### [facility] ([id number]) [address] [place] [address] TRICHOMONAS PCRon 04-24-2024 TRICHOMONAS PCR SPECIMEN SOURCE VAGINAL TRICHOMONAS PCR Not detected (qualifier value) Trichomonas vaginalis not detected NOTE Assay methodology is nucleic acid amplification by real-time PCR for detection of Trichomonas vaginalis DNA performed on Warp 9 Instrument System. Normal [facility] Comment on above: Performed By: #### T RKPCR #### [facility] ([id number]) [address] [place] [address] FREE THYROXINE INDEX T7on FTI 2.87 Normal 1.30-4.50 [facility] Comment on above: Performed By: #### T HOMA, T7 #### [facility] [address] [place] [address] Dr. Mirlande Dumas T3U 33.0 % Normal 30.0-39.0 [facility] Comment on above: Performed By: #### T HOMA, T7 #### [facility] [address] [place] [address] Dr. Mirlande Dumas T4 [Mass/Vol] 8.70 ug/dL Normal 4.80-13.90 [facility] Comment on above: Performed By: #### T HOMA, T7 #### [facility] [address] [place] [address] Dr. Mirlande Dumas TSHon 11-10-2022 TSH 1.531 uIU/mL Normal 0.358-3.740 [facility] Comment on above: Performed By: #### Aicha LUTHER, T7 #### [facility] [address] [place] [address] Dr. Mirlande Dumas MG MAMM SCREEN 3D CUCA CADon 09-08-2022 MG MAMM SCREEN 3D CUCA CAD Patient: FABIAN DE LA CRUZ Exam Date: 09/08/2022 : 1965 Gender:F Ordering : JOSIE [facility]ASSO [facility] Admission #: [id number] Family : Order #: [id number] CLICK HERE TO VIEW EXAM RADIOLOGY REPORT [...] skin cancer at age 58. LOCATION: [facility] BREAST COMPOSITION: Heterogeneously dense,which may obscure small [...] Leigh MD on 09/09/2022 at 08:10 Normal [facility] PAP ACOG PANEL 2: 30 to 65on 08-18-2022 . . Normal [facility] Comment on above: Result Comment: Perf ormed at: WB Performed By: #### 4 [id number] #### [facility] [address] [address] [address] Mirlande Dumas Age Gdln ACOG Testing 30-65 Normal [facility] Comment on above: Performed By: #### 4 [id number] #### [facility] [address] [place] [address] Dr. Mirlande Dumas DIAGNOSIS: Comment Normal [facility] Comment on above: Result Comment: NEGA TIVE FOR INTRAEPITHELIAL LESION OR MALIGNANCY. Performed at: WB Performed By: #### 4 [id number] #### [facility] [address] [place] [address] Dr. Mirlande Dumas HPV Aptima Positive Abnormal Negative [facility] Comment on above: Result Comment: This nucleic acid amplification test detects fourteen high-risk HPV types (16,18,31,33,35,39,45,51,52,56,58,59,66,68) without differentiation. Performed at: =G Performed By: #### 4 [id number] #### [facility] [address] [address] [address] Mirlande Dumas HPV Genotype 16 Negative Normal Negative [facility] Comment on above: Performed By: #### 4 [id number] #### [facility] [address] [place] [address] Dr. Mirlande Dumas HPV Genotype 18,45 Negative Normal Negative [facility] Comment on above: Performed By: #### 4 [id number] #### [facility] [address] [address] [address] Mirlande Dumas HPV Genotype Reflex Comment Normal [facility] Comment on above: Result Comment: Osito partida met, see HPV Genotype results. Performed at: WB Performed By: #### 4 [id number] #### [facility] [address] [address] [address] Mirlande Dumas Methodology: Comment Normal [facility] Comment on above: Result Comment: This liquid based ThinPrep(R) pap test was screened with the use of an image guided system. Performed at: WB Performed By: #### 4 [id number] #### [facility] [address] [address] [address] Miralnde Dumas Note: Comment Normal [facility] Comment on above: Result Comment: The Pap smear is a screening test designed to aid in the detection of premalignant and malignant conditions of the uterine cervix. It is not a diagnostic procedure and should not be used as the sole means of detecting cervical cancer. Both false-positive and false-negative reports do occur. . Performed at: WB Performed By: #### 4 [id number] #### [facility] [address] [address] [address] Mirlande Dumas Performed by: Comment Normal [facility] Comment on above: Result Comment: Marita Caldera, Child Care Center Administrator (ASCP) Performed at: WB Performed By: #### 4 [id number] #### [facility] [address] [place], [place] [address] Dr. Mirlande Dumas Specimen adequacy: Comment Normal [facility] Comment on above: Result Comment: Sati sfactory for evaluation. Endocervical and/or squamous metaplastic cells (endocervical component) are present. Performed at: WB Performed By: #### 4 [id number] #### [facility] [id number] Mirlande Dumas Encounters Encounter Date Encounter Type Care Provider Facility Start: 06-13-2024 End: 06-13-2024 Postop follow up visit related to original px Melly Treadwell MD Work Phone: [facility] Comment on above: Encounter for remova l of sutures (Primary Dx) Start: 06-13-2024 End: 06-13-2024 ambulatory MELLY TREADWELL Not Available Start: 06-13-2024 End: 06-13-2024 Bamboo juan Treadwell MD Work Phone: [facility] Start: 06-13-2024 End: 06-13-2024 Hugoboo juan Treadwell MD Work Phone: [facility] Start: 05-30-2024 End: 05-30-2024 Bamboo juan Treadwell MD Work Phone: [facility] Start: 05-30-2024 End: 05-30-2024 Bamricardo Treadwell MD Work Phone: [facility] Start: 05-30-2024 End: 05-30-2024 Patient encounter procedure Melly Treadwell MD Work Phone: [facility] Comment on above: Basal cell carcinoma (BCC) of skin of other part of torso (Primary Dx) Start: 05-30-2024 End: 05-30-2024 ambulatory MELLY TREADWELL Not Available Start: 05-16-2024 End: 05-16-2024 Bamboo flowsheet Kamryn Jeremiem PA Work Phone: [facility] Start: 05-16-2024 End: 05-16-2024 Bamboo flowsheet Kamrynsrinivas Chaom PA Work Phone: [facility] Start: 05-16-2024 End: 05-16-2024 Postop follow up visit related to original px Kamryn Chaom PA Work Phone: [facility] Comment on above: Encounter for remova l of sutures (Primary Dx) Start: 05-16-2024 End: 05-16-2024 ambulatory KAMRYN NORTHEIM Not Available Start: 05-02-2024 End: 05-02-2024 Patient encounter procedure Melly Treadwell MD Work Phone: [facility] Comment on above: Neoplasm of uncertai n behavior of skin of back (Primary Dx) Start: 05-02-2024 End: 05-02-2024 ambulatory MELLY TREADWELL Not Available Start: 05-02-2024 End: 05-02-2024 Bamboo juan Treadwell MD Work Phone: [facility] Start: 05-02-2024 End: 05-02-2024 Bamboo flowsheet Melly Treadwell MD Work Phone: [facility] Start: 04-24-2024 End: 04-24-2024 ambulatory [facility] Start: 04-24-2024 End: 04-24-2024 ambulatory [facility] Start: 03-20-2024 End: 03-20-2024 ambulatory MELLY TREADWELL Not Available Start: 11-10-2022 End: 11-11-2022 ambulatory [facility] Start: 09-08-2022 End: 09-09-2022 ambulatory JOSIE ROMERO Facility:[facility] Start: 08-11-2022 End: 08-11-2022 ambulatory [facility] Start: 02-11-2022 ambulatory [facility] Facility: [facility] Procedures Date Procedure Procedure Detail Performing Clinician Start: 05-30-2024 SKIN EXCISION Melly morrell MD Work Phone: Start: 05-30-2024 SKIN REPAIR Melly rosenberg MD Work Phone: Start: 05-02-2024 SKIN REPAIR Melly rosenberg MD Work Phone: Start: 05-02-2024 SKIN EXCISION Melly morrell MD Work Phone: Plan of Treatment Date Care Activity Detail Author Start: 03-21-2025 End: 03-21-2025 Patient encounter procedure 03/21/2025 4:05 PM EDT Office Visit [facility] [address] [place] [address] Melly Treadwell MD [address] [place] [address] [facility] Start: 12-13-2024 End: 12-13-2024 Patient encounter procedure 12/13/2024 1:15 PM EDT Office Visit [facility] [address] [place] [phone] Melly Treadwell MD [address] [place] [address] [facility] Start: 06-13-2024 End: 06-13-2024 Patient encounter procedure [facility] Comment on above: Arrived Start: 05-30-2024 End: 05-30-2024 Patient encounter procedure [facility] Comment on above: Arrived Start: 05-16-2024 End: 05-16-2024 Patient encounter procedure [facility] Comment on above: Arrived Start: 05-13-2024 Influenza vaccination Influenza Vaccine (#1) [facility] Start: 05-02-2024 End: 05-02-2024 Patient encounter procedure 05/02/2024 2:30 PM EDT Office Visit [facility] [address] [place] [phone] Melly Treadwell MD [address] [place] [address] Arrived [facility] Comment on above: Arrived Start: 2003 Screening for malignant neoplasm of breast Mammogram [facility] Start: 1993 Screening for malignant neoplasm of cervix [facility] Start: 1984 Screening for malignant neoplasm of cervix Pap Smear [facility] Start: 1965 Screening for malignant neoplasm of colon [facility] Dermatopathology exam Dermatopat hology exam Pathology and Cytology Timed Basal cell carcinoma (BCC) of skin of other part of torso Release Upon Ordering for 1 Occurrences starting 05/30/2024 [facility] Work Phone: Comment on above: Release Upon Ordering for 1 Occurrences starting 05/30/2024 Dermatopathology exam Dermatopat hology exam Pathology and Cytology Timed Neoplasm of uncertain behavior of skin of back Release Upon Ordering for 1 Occurrences starting 05/02/2024 [facility] Work Phone: Comment on above: Release Upon Ordering for 1 Occurrences starting 05/02/2024 Immunizations Immunization Date Immunization Notes Care Provider Yg knight 06-13-2023 influenza virus vacc ine, unspecified formulation Melly Treadwell MD Work Phone: [facility] Payers Date Payer Category Payer Unknown BCBS BCBS [id number] [id number] 2021-Present [phone] [address] [place] [address] [id number] 1965 Unknown [id number] 1965 Unknown [id number] [id number] 1965 Unknown [id number] [id number] 1965 Unknown [id number] [id number] 1965 Unknown [id number] 2.16.840.1.051012.3.579.2.1286 1965 Unknown [id number] 2.16.840.1.441868.3.579.2.1286 1965 Unknown [id number] 2.16.840.1.464630.3.579.2.1286 1965 Unknown [id number] 2.16.840.1.047490.3.579.2.1259 1965 Unknown [id number] 2.16.840.1.062869.3.579.2.1259 1963 Unknown [id number] 2.16.840.1.506665.3.579.2.1259 1963 Unknown [id number] 2.16.840.1.076319.3.579.2.1259 1965 Unknown [id number] 2.16.840.1.865317.3.579.2.1259 1961 Self-pay [id number] 1961 Unknown [id number] Social History Date Type Detail Facility Start: 03-20-2024 Tobacco smoking [facility] Start: 03-20-2024 Tobacco use and exposure Smokeless t obacco non-user [facility] Start: 05-16-2024 End: 05-30-2024 History of Social function [facility] Start: 05-16-2024 End: 05-30-2024 Tobacco use panel [facility] Start: 1965 Sex assigned at Not on file [facility] Start: 05-15-2024 Sexual orientation Heterosexual (fin ding) [facility] History of Present illness Narrative 06-13-2024 Melly Treadwell MD - 06/13/2024 2:40 PM EDT Note Date & Type Note Facility 06-13-2024 History of Presen t illness Narrative Images from the original note were not included. Suture Removal Patient here for suture removal: No complaints of redness, drainage or swelling at site, compliant with wound care. Location: right lower back Procedure Performed: Excision Date of Procedure: 05/30/2024 All pertinent medical history, medications, and allergies were reviewed. General Exam: alert, oriented to person, place, and time, normal affect, well appearing Unaccompanied A focused exam completed based on patient reported problems, see below: 1. Encounter for removal of sutures Right Lower Back Sutures are intact, Skin edges are well-approximated, Mild erythema along incision line, No drainage or edema noted, no signs of infection noted Suture removal today, see procedure note: Suture Removal Procedure: Sutures were removed without difficulty. Tincture of Benzoin was applied around site in preparation of steri-strips. Steri-strips were applied Post-Procedure instructions: Instructed to discontinue wound care., Instructed to keep steri strips on for at least 5-7 days., Pathology results discussed. Recommended using OTC triple ATB ointment daily x 3 days. If any worsening notify office. Next Visit: 6 months skin exam documented in this encounter [facility] History of Present illness Narrative 05-30-2024 Melly Treadwell MD - 05/30/2024 1:30 PM EDT Note Date & Type Note Facility 05-30-2024 History of Presen t illness Narrative Images from the original note were not included. Akash De La Cruz is a 58 y.o. female who presents for the following: Excision. Location: right lower back Date of biopsy: 03/20/2024 Diagnosis: Basal cell carcinoma Pre-Op Checklist: History of pacemaker/defibrillator: No History of joint replacement in the past 2 years: No History of HIV/Hepatitis B/Hepatitis C: No Latex allergy: No Is the patient currently on a blood thinner? No. All pertinent medical history, medications, and allergies were reviewed. Surgical assistants: Megan Collins CMA and Laura Porter LPN Objective Well appearing patient in no apparent distress; mood and affect are within normal limits. 1. Basal cell carcinoma (BCC) of skin of other part of torso Right Lower Back Erythematous patch at biopsy site Skin excision Lesion length (cm): 1.7 Lesion width (cm): 1.3 Margin per side (cm): 0.4 Total excision diameter (cm): 2.5 Informed consent: discussed and consent obtained Informed consent comment: Risks and possible complications were discussed as noted on the consent form. The consent form was signed prior to the procedure. Timeout: patient name, date of , surgical site, and procedure verified Timeout comment: Patient and provider identified site. Site was marked and excision was drawn out. Photo was taken and shown to patient, patient verified this is the correct site. Procedure prep: Patient was prepped and draped in usual sterile fashion (The planned incision lines were drawn along relaxed skin tension lines, if possible, to minimize scarring and deformity of surrounding structures.) Prep type: Chlorhexidine Anesthesia: the lesion was anesthetized in a standard fashion Anesthesia comment: The local anesthetic was injected to create a field block at the site of the procedure. Anesthetic: 1% lidocaine w/ epinephrine 1-100,000 buffered w/ 8.4% NaHCO3 Instrument used: #15 blade Instrument used comment: Incisions were made as drawn, and the surrounding tissue was undermined until the skin edges could be approximated without undue tension. Any tissue redundancies were removed. Hemostasis achieved with: electrodesiccation Additional details: Amount of lidocaine used: 18 ml Estimated blood loss: < 1.0 ml Skin repair Complexity: Intermediate Final length (cm): 5.2 Reason for type of repair: allow closure of the large defect Undermining: edges undermined Undermining comment: The surrounding tissue was undermined until the skin edges could be approximated without undue tension. Any tissue redundancies were removed. Subcutaneous layers (deep stitches): Suture size: 3-0 Suture type comment: Biosyn Stitches: Buried horizontal mattress (Closure was performed in a layered fashion with subcutaneous tissue closed first using tension-bearing absorbable sutures to the level of the superficial fascia.) Fine/surface layer approximation (top stitches): Suture size: 4-0 Suture type: Prolene (polypropylene) Stitches: simple running Stitches comment: Epicuticular skin sutures were then placed with minimal tension. Suture removal (days): 14 Outcome: patient tolerated procedure well with no complications Post-procedure details: sterile dressing applied and wound care instructions given Post-procedure details comment: It was emphasized to the patient to contact the office for any signs of infection, uncontrollable bleeding, or complications. Dressing type: bandage Specimen A - Dermatopathology exam Differential Diagnosis: BCC Check Margins: Yes Previous accession number: [id number] Excision today. See operative report. Return to clinic prior to next scheduled visit for any signs or symptoms of recurrence, reviewed the signs and symptoms. Follow up: 14 days for s/r documented in this encounter [facility] History of Present illness Narrative 05-16-2024 Becky Porter LPN - 05/16/2024 8:45 AM EDT Note Date & Type Note Facility 05-16-2024 History of Presen t illness Narrative Images from the original note were not included. Suture Removal Patient here for suture removal: No complaints of redness, drainage or swelling at site, compliant with wound care. Location: mid upper back Procedure Performed: Excision Date of Procedure: 05/02/2024 All pertinent medical history, medications, and allergies were reviewed. General Exam: alert , oriented to person, place, and time , normal affect, well appearing Unaccompanied A focused exam completed based on patient reported problems, see below: 1. Encounter for removal of sutures mid upper back Sutures are intact, Skin edges are well-approximated, Mild erythema along incision line, No drainage or edema noted Erythema from adhesive noted around incision line Suture removal today, see procedure note: Suture Removal Procedure: Sutures were removed without difficulty. Tincture of Benzoin was applied around site in preparation of steri-strips. Steri-strips were applied Post-Procedure instructions: Instructed to discontinue wound care., Instructed to keep steri strips on for at least 5-7 days., Pathology results discussed. Next Visit: as scheduled documented in this encounter [facility] History of Present illness Narrative 05-02-2024 Melly Treadwell MD - 05/02/2024 2:30 PM EDT Note Date & Type Note Facility 05-02-2024 History of Presen t illness Narrative Images from the original note were not included. Akash De La Cruz is a 58 y.o. female who presents for the following: excision. Location: mid upper back Date of biopsy: 03/20/2024 Diagnosis: Severely atypical nevus Pre-Op Checklist: History of pacemaker/defibrillator: No History of joint replacement in the past 2 years: No History of HIV/Hepatitis B/Hepatitis C: No Latex allergy: No Is the patient currently on a blood thinner? No. All pertinent medical history, medications, and allergies were reviewed. Surgical assistants: Sasha Reddy CMA, SAY Nunn Objective Well appearing patient in no apparent distress; mood and affect are within normal limits. 1. Neoplasm of uncertain behavior of skin of back Mid Upper Back Erythematous macule at the biopsy site. Skin excision Lesion length (cm): 0.5 Lesion width (cm): 0.4 Margin per side (cm): 0.5 Total excision diameter (cm): 1.5 Informed consent: discussed and consent obtained Informed consent comment: Risks and possible complications were discussed as noted on the consent form. The consent form was signed prior to the procedure. Timeout: patient name, date of , surgical site, and procedure verified Timeout comment: Patient and provider identified site. Site was marked and excision was drawn out. Photo was taken and shown to patient, patient verified this is the correct site. Procedure prep: Patient was prepped and draped in usual sterile fashion (The planned incision lines were drawn along relaxed skin tension lines, if possible, to minimize scarring and deformity of surrounding structures.) Prep type: Chlorhexidine Anesthesia: the lesion was anesthetized in a standard fashion Anesthesia comment: The local anesthetic was injected to create a field block at the site of the procedure. Anesthetic: 1% lidocaine w/ epinephrine 1-100,000 buffered w/ 8.4% NaHCO3 Instrument used: #15 blade Instrument used comment: Incisions were made as drawn, and the surrounding tissue was undermined until the skin edges could be approximated without undue tension. Any tissue redundancies were removed. Hemostasis achieved with: electrodesiccation Additional details: Amount of lidocaine used: 4.0 ml Estimated blood loss: <1.0 ml Skin repair Complexity: Intermediate Final length (cm): 3 Reason for type of repair: allow closure of the large defect Undermining: edges undermined Undermining comment: The surrounding tissue was undermined until the skin edges could be approximated without undue tension. Any tissue redundancies were removed. Subcutaneous layers (deep stitches): Suture size: 3-0 Suture type comment: Biosyn Stitches: Buried horizontal mattress (Closure was performed in a layered fashion with subcutaneous tissue closed first using tension-bearing absorbable sutures to the level of the superficial fascia.) Fine/surface layer approximation (top stitches): Suture size: 4-0 Suture type: Prolene (polypropylene) Stitches: simple running Stitches comment: Epicuticular skin sutures were then placed with minimal tension. Suture removal (days): 14 Outcome: patient tolerated procedure well with no complications Post-procedure details: sterile dressing applied and wound care instructions given Post-procedure details comment: It was emphasized to the patient to contact the office for any signs of infection, uncontrollable bleeding, or complications. Dressing type: bandage Specimen A - Dermatopathology exam Differential Diagnosis: severely atypical nevus Check Margins: Yes Size of lesion: 0.5 x 0.4 cm Previous accession number: [id number] Excision today. See operative report. Return to clinic prior to next scheduled visit for any signs or symptoms of recurrence, reviewed the signs and symptoms. Follow up: 14 days for s/r documented in this encounter [facility] Evaluation note Note Date & Type Note Facility Evaluation note Diagnosis Encounter for removal of sutures- Primary documented in this encounter [facility] Evaluation note Note Date & Type Note Facility Evaluation note Diagnosis Basal cell carcinoma (BCC) of skin of other part of torso- Primary documented in this encounter [facility] Evaluation note Note Date & Type Note Facility Evaluation note Diagnosis Neoplasm of uncertain behavior of skin of back- Primary documented in this encounter [facility] Summary Purpose Family History No Family History Records FoundNo Family History Records FoundNo Family History Records FoundNo Family History Records FoundNo Family History Records Found Advance Directives No Advanced Directives Records FoundNo Advanced Directives Records FoundNo Advanced Directives Records FoundNo Advanced Directives Records FoundNo Advanced Directives Records Found Additional Source Comments INFORMATION SOURCE (unrecogn ized section and content) DATE CREATED AUTHOR 11/16/2022 [facility] DATE CREATED AUTHOR AUTHOR'S ORGANIZ ATION 04/25/2024 [facility] DATE CREATED AUTHOR AUTHOR'S ORGANIZ ATION 04/25/2024 [facility] DATE CREATED AUTHOR AUTHOR'S ORGANIZ ATION 04/26/2024 [facility] DATE CREATED AUTHOR AUTHOR'S ORGANIZ ATION 06/15/2024 [facility] EPIC Reason for Visit (unrecogniz ed section and content) Reason Comments Suture / Staple Removal Reason Comments Excision Reason Comments excision FOR RECORDS PERTAINING TO PATIENTS WHO ARE [...] BE BASED ON THE PRIMARY CLINICAL RECORDS. [facility]. provides no warranty or guarantee of the accuracy or completeness of information in this document.
--- NOTE | 2024-09-26 07:58 | MM_ITS ---
Patient Name: FABIAN DE LA CRUZ MR#: [id number] : 1965 Exam Date: 09/26/2024 Ordering Doctor: JOSIE JASSO CNP RADIOLOGY REPORT PROCEDURE: MM TOMOSYNTHESIS SCREENING BI COMPARISON: MG MAMM SCREEN 3D CUCA CAD, 09/08/2022. MM TOMOSYNTHESIS SCREENING BI, 09/21/2023. INDICATIONS: Screening Calculator Name NCI Breast Cancer Risk Assessment Tool 5 Year Breast Cancer Risk 1.30% Lifetime Breast Cancer Risk 6.10% Personal Breast Cancer No Personal Ovarian Cancer No Treatments None Family Cancers Mother with lung cancer at age 84; Sister with skin cancer at age 50; Father with skin cancer at age 60. LOCATION: [facility] BREAST COMPOSITION: The breasts are heterogeneously dense,which may obscure small masses. FINDINGS: DIAGNOSTIC CATEGORY 2--BENIGN FINDING. NO CHANGE FROM COMPARISON. Scattered benign-appearing calcifications are present. Scattered benign-appearing lymph nodes are present. RIGHT BREAST: No significant suspicious finding. LEFT BREAST: No significant suspicious finding. Stable micro clip marker lower outer quadrant, mid posterior breast. RECOMMENDATIONS: ROUTINE MAMMOGRAM AND CLINICAL EVALUATION IN 12 MONTHS. PLEASE NOTE: A NORMAL MAMMOGRAM DOES NOT EXCLUDE THE POSSIBILITY OF BREAST CANCER. A CLINICALLY SUSPICIOUS PALPABLE LUMP SHOULD BE BIOPSIED. Dictated by: Delonte Jackson MD on 09/26/2024 at 09:51 Approved by: Delonte Jackson MD on 09/26/2024 at 09:55
== END 2024-09-26 07:54 | disposition home or self-care (01) ==
LOC: MAMMO 07:53
PROVIDERS: PCP Nurse Practitioner Family; Visit Provider Nurse Practitioner Family
DX: Z12.31 Encounter for screening mammogram for malignant neoplasm of breast (principal); Z80.1 Family history of malignant neoplasm of trachea, bronchus and lung; Z80.8 Family history of malignant neoplasm of other organs or systems
CPT/HCPCS: 77063; 77067

== ENCOUNTER 2025-02-01 08:37 | Outpatient (OUT) | payer BC, SELFPAY ==
--- OUTSIDE RECORDS SUMMARY | 2024-10-08 07:46 | XMS_ITS ---
Author Organization [facility] in [place] Address [address] [place] [address] Care Team Providers Care Business Law Instructor Name Role Phone Bella Corley Primary Care Provider [phone] REASON FOR VISIT rf Viberzi Medications Medication SIG (Take, Route, Fr equency, Duration) Notes Start Date End Date Status Viberzi 100 MG 1 tablet with food O rally Twice a day for 30 days 08/27/2024 Active Encounters Encounter Location Date Provider Diagnosis [facility] [address] [place] [address] 10/08/2024 Bella Corley Plan Of Treatment Medication Medication Name Sig Start Date Stop Date Notes Viberzi 100 MG 1 tablet with food O rally Twice a day for 30 days 08/27/2024 Next Appt Details Provider Name:Bella preston, 02/07/2025 08:30:00 AM, [address] [place], [address], Progress Notes * Hue SUN MDOB:1965 (59 yo F)Acc No.[id number]:10/08/2024 Patient: Allyson PARNELL Hue Allyson :1965 A ge:59 Y S ex:Female Address:[facility] [place] [address] * Refills Refill Viberzi Tablet, 100 MG, Orally, 60 Tablet, 1 tablet with food, Twice a day, 30 days, Refills=0 * true * Date: Generated for Eran bell/Anselmo/Hiren on: 0 02/01/2025 08:41 AM EDT
--- OUTSIDE RECORDS SUMMARY | 2024-11-20 12:23 | XMS_ITS ---
Author Organization [facility] [place] Address [address] [place] [address] Care Team Providers Care Resource Recovery Specialist Name Role Phone Bella Corley Primary Care Provider [phone] REASON FOR VISIT Viberzi Medications Medication SIG (Take, Route, Fr equency, Duration) Notes Start Date End Date Status Viberzi 100 MG 1 tablet with food O rally Twice a day for 30 days 11/21/2024 Active Encounters Encounter Location Date Provider Diagnosis [facility] [address] [place] [address] 11/20/2024 Bella Corley Plan Of Treatment Medication Medication Name Sig Start Date Stop Date Notes Viberzi 100 MG 1 tablet with food O rally Twice a day for 30 days 11/21/2024 Next Appt Details Provider Name:Bella preston, 02/07/2025 08:30:00 AM, [address] [place], [address], Progress Notes * Hue SUN MDOB:1965 (59 yo F)Acc No.[id number]:11/20/2024 Patient: Allyson PARNELL Hue Allyson :1965 A ge:59 Y S ex:Female Address:[facility] [place] [address] * Refills Refill Viberzi Tablet, 100 MG, Orally, 60 Tablet, 1 tablet with food, Twice a day, 30 days, Refills=0 Subjective: * Chief Complaints: * V iberzi * Medical History: * Surgical History: * Hospitalization/Major Diagno stic Procedure: * Medications: Objective: * Vitals: * Physical Examination: Assessment: Plan: * Treatment: * Procedure Codes: * true * Date: Generated for Eran bell/Anselmo/Hiren on: 02/01/2025 08:41 AM EDT
--- OUTSIDE RECORDS SUMMARY | 2025-01-10 15:11 | XMS_ITS ---
Author Name Auto Generated Organization OHIP Care Team Providers [employer] Name Role Phone EDITH TREADWELL Attending Unavailable MILE, EDITH Cruz Attending Unavailable PETKERON, EDITH Cruz Attending Unavailable PETEDITH CABRALES Attending Unavailable KAMRYN GARCIA Attending Unavailable PETKERON, EDITH Cruz Attending Unavailable MILE, EDITH Cruz Attending Unavailable DAVID LI Attending Unavailable CULLEN REYES Referring Unavailable CULLEN REYES Primary Care Unavailable DAVID [place] Referring Unavailable CULLEN REYES Primary Care Unavailable DAVID LI Referring Unavailable CULLEN REYES Primary Care Unavailable PROBLEMS DATE TYPE CONDITION / CODE ATTENDING STATUS JESSICA RCE 04/24/2024 Unknown Encounter for sc reening for infections with a predominantly sexual mode of transmission / Z11.3(ICD-10) DAVID LI Active [facility] 04/24/[address] D / UNK(Unknown) DAVID LI Active [facility] PROCEDURES No Procedure Records Found RESULTS ACUTE HEPATITIS PANEL Collected: 04/24/2024 9:2 9 AM Status: COMPLETED Source: [facility] TYPE CODE TESTS RESULT OUT OF RANGE REFERENCE UNITS LAB HBAG(LOINC) HEPATITIS B SURF AG Negative (qualifier value) NEG LAB HBCM(LOINC) HEPATITIS B CORE IGM Negative (qualifier value) NEG LAB HAVM(LOINC) HEPATITIS A IGM Nonreactive (qualifier value) NRCT LAB HCV(LOINC) ANTI HCV W/PCR REFLX Nonreactive (qualifier value) NRCT Result Comment: If recent infection suspected, recommend repeat testing (>2 months). Wmmvsl-cv-qixjjs ratio is <0.80. Performed By: #### [facility], 5688 8-1, 59501-3 #### [facility] ([id number]) [address] [place] [address], [address] [place] [address] HIV 1 AND 2 AB/AG SCREEN Collected: 9:29 AM Status: COMPLETED Source: [facility] TYPE CODE TESTS RESULT OUT OF RANGE REFERENCE UNITS LAB HIV4(LOINC) HIV 1 and 2 Ab/Ag Screen Nonreactive (qualifier value) NRCT Result Comment: This information has been disclosed [...] test results or diagnoses. Performed By: #### [facility], 5688 8-1, 37681-0 #### [facility] ([id number]) [address] [place] [address] SYPHILIS TOTAL Collected: 04/24/2024 9:29 AM S tatus: COMPLETED Source: [facility] TYPE CODE TESTS RESULT OUT OF RANGE REFERENCE UNITS LAB SYPHT(LOINC) Syphilis Total <0.2 0.0-0.8 AI Result Comment: NON REACTIVE No serologic evidence of infection to Treponema pallidum (syphilis). Repeat testing may be considered in patients with suspected acute or primary syphilis in 2 to 4 weeks. Performed By: #### [place], 5688 8-1, 89243-1 #### [facility] ([id number]) [address] [place] [address] TRICHOMONAS PCR Observed: 04/24/2024 9:10 AM Status: COMPLETED Source: [facility] SPECIMEN SOURCE VAGINAL TRICHOMONAS PCR Not detected (qualifier value) Trichomonas vaginalis not detected NOTE Assay methodology is nucleic acid amplification by real-time PCR for detection of Trichomonas vaginalis DNA performed on [employer] GeneXpert Instrument System. Performed By: #### TRKPCR ## ## [facility] ([id number]) [address] [place] [address]47 CHLAMYDIA/GC BY PCR Observed: 04/24/2024 9:10 AM Status: COMPLETED Source: [facility] SPECIMEN SOURCE CERVIX CHLAMYDIA DNA(PCR) Negative (qualifier value) Chlamydia trachomatis not detected by nucleic acid amplification. This does not exclude the possibility of infection because results are dependent on adequate specimen collection. GONORRHOEAE DNA(PCR) Negative (qualifier value) Neisseria gonorrhoeae not detected by nucleic acid amplification. This does not exclude the possibility of infection because results are dependent on adequate specimen collection. Performed By: #### CGS #### [facility] ([id number]) [address] [place] [address] ALLERGIES DATE TYPE / CODE NAME / CODE REACTION SEVERITY SOURCE 03/20/2024 DRUG INGREDI~NON-CBORD/4 [id number](SNOMED CT) AZITHROMYCIN [facility] 03/20/2024 Drug Class~NON-CBORD/419 [id number](SNOMED CT) PENICILLINS [facility] ENCOUNTERS ADMIT/DISCHARGE ACCOUNT NUMBER ADMITTING ENCOUNTER CLASS LOCATION SOURCE 01/10/2025/01/11/20 [id number] Ambulatory Building:[facility] 10/23/2024/10/23/19 25 [id number] Ambulatory Building:N[facility] 06/13/2024/06/13/20 24 [id number] Ambulatory Building:N[facility] 05/30/2024/05/30/20 24 [id number] Ambulatory Building:N[facility] 05/16/2024/05/16/20 24 [id number] Ambulatory Building:N[facility] 05/02/2024/05/02/20 24 [id number] Ambulatory Building:NOM S [facility] 04/24/2024/04/24/20 24 [id number] Ambulatory Building:PTH _PML [facility] 04/24/2024/04/24/20 24 [id number] Ambulatory Building:PFM _LAB [facility] 04/24/2024/04/24/20 24 [id number] Ambulatory Buildin 18 [facility] 03/20/2024/03/20/20 24 [id number] Ambulatory Building:NOM S [facility] PAYERS ENCOUNTER GUARANTOR PAYER SUBSCRIBER SOURCE 01/10/2025 FABIAN HADDADB: [id number] [place] [address]Gxg: () Primary Insurance:[employer] licy Number: [id number] ctive Date:2021-09-12 FABIAN MYSAHRADOB: [id number] [place] [address] [facility] 10/23/2024 FABIAN HADDADB: [place] [address]Oce: (HP) Primary Insurance:BCBSPo licy Number: [id number] ctive Date:2021-09-12 FABIAN MYLESDOB: [id number] [place] [address] [facility] 06/13/2024 FABIAN MYLESDOB: [place] [address]Mhh: (HP) Primary Insurance:BCBSPo licy Number: [id number] ctive Date:2021-09-12 FABIAN MYLESDOB: [id number] [place] [address] [facility] EP[facility] 05/30/2024 FABIAN MYLESDOB: [place] [address]Pqk: (HP) Primary Insurance:BCBSPo licy Number: [id number] ctive Date:2021-09-12 FABIAN MYLESDOB: [id number] [place] [address] [facility] EP[facility] 05/16/2024 FABIAN MYLESDOB: [place] [address]Cif: (HP) Primary Insurance:BCBSPo licy Number: [id number] ctive Date:2021-09-12 FABIAN MYLESDOB: [id number] [place] [address] [facility] EP[facility] 05/02/2024 FABIAN MYLESDOB: [address] [place] [address]Gzq: (HP) Primary Insurance:BCBSPo licy Number: [id number] ctive Date:2021-09-12 FABIAN MYLESDOB: [id number] [place] [address] [facility] 04/24/2024 FABIAN HADDADB: [place] [address]Ioa: () Primary Insurance:BLUE ACCESS (PPO)Policy Number: [id number] ctive Date:2013-09-12 FABIAN DE LA CRUZDOB: [id number] [place], [place] [address]Iro: () [facility] 04/24/2024 FABIAN HADDADB: [place], [place] [address]Bwm: () Primary Insurance:BLUE ACCESS (PPO)Policy Number: [id number] ctive Date:2013-09-12 FABIAN HADDADB: [id number] [place], [place] [address]Lfs: () [facility] 04/24/2024 FABIAN DE LA CRUZDOB: [place] [address]Xzx: () Primary Insurance:BLUE ACCESS (PPO)Policy Number: [id number] ctive Date:2013-09-12 FABIAN HADDADB: [id number] [address] [place], [place] [address]Lde: (HP) () [facility] 03/20/2024 FABIAN HADDADB: [address] [place] [place], [place] [address]Plk: (HP) Primary Insurance:BCBS licy Number: [id number] ctive Date:2021-09-12 FABIAN HADDADB: [id number] [place] [address] [facility] EPIC
--- OUTSIDE RECORDS SUMMARY | 2025-02-01 08:42 | XMS_ITS | Patient Health Record ---
Author Organization [facility] in [place] Address [address] [place] [address] Care Team Providers Care Police Captain Senior Name Role Phone Bella Corley Primary Care Provider BELLA CORLEY Unavailable [phone] Allergies Allergen (clinical drug ingredient) Drug/Non Drug Allergy documented on EMR Reaction Allergy Type Onset Date Status Penicillin unknown, childhood allergy Drug Allergy Active Results Component Value Reference Range Notes CBC AUTO DIFF Reviewed date:02/24/2024 02:39:12 PM Interpretation: Performing Lab: Notes/Report: [facility] , White Blood Count 8.7 4.0-11.0 10 3/uL Red Blood Count 4.26 4.20-5.40 10 6/uL Hemoglobin 12.9 12.0-16.0 g/dL Hematocrit 39.3 36.0-48.0 % Mean Corpuscular Volume 92.3 81.0-99.0 fL Mean Corpuscular Hemoglobin 30.3 26.7-34.0 pg Mean Corpuscular HGB Conc 32.8 29.9-35.2 g/dL Red Cell Distribution Width 13.2 11.0-15.0 % Platelet Count 228 150-450 10 3/uL Mean Platelet Volume 10.6 9.5-13.5 fL Neutrophils Percent Auto 66.2 43.0-75.0 % Lymphocytes Percent Auto 24.5 20.5-60.0 % Monocytes Percent Auto 7.4 1.7-12.0 % Eosinophils Percent Auto 1.2 0.9-7.0 % Basophils Percent Auto 0.2 0.2-2.0 % Immature Granulocytes Pct Auto 0.5 0.0-0.5 % Neutrophils Absolute Auto 5.7 1.4-6.5 10 3/uL Lymphocytes Absolute Auto 2.1 1.2-3.8 10 3/uL Monocytes Absolute Auto 0.6 0.3-0.8 10 3/uL Eosinophils Absolute Auto 0.1 0.0-0.7 10 3/uL Basophils Absolute Auto 0.0 0.0-0.1 10 3/uL Immature Granulocytes Abs Auto 0.04 0.00-0.03 10 3/uL Performing Lab: see note ML - [facility] LB Occult Blood* Reviewed date:03/05/2024 10:16:20 AM Interpretation: Performing Lab: Notes/Report: [facility] , Occult Blood Negative Performing Lab: see note ML - [facility] LB TSH Reviewed date:02/24/2024 02:39:12 PM Interpretation: Performing Lab: Notes/Report: [facility] , Thyroid Stimulating Hormone 2.179 0.358-3.740 uIU/mL Performing Lab: see note ML - [facility] LB T4 Reviewed date:02/24/2024 02:39:12 PM Interpretation: Performing Lab: Notes/Report: [facility] , T4 Thyroxine 7.20 4.80-13.90 ug/dL Performing Lab: see note - [facility] LB PROF 14(COMP METB) Reviewed date:02/24/2024 02:39:12 PM Interpretation: Performing Lab: Notes/Report: [facility] , Sodium 142 136-145 mmol/L Potassium 3.2 3.5-5.1 mmol/L Chloride 104 98-107 mmol/L Carbon Dioxide 28.0 21.0-32.0 mmol/L Anion Gap 13.2 Glucose 82 74-106 mg/dL Blood Urea Nitrogen 21.0 7.0-18.0 mg/dL Creatinine 0.91 0.55-1.02 mg/dL Estimated GFR ( Gill >60 >=60 Estimated GFR (Non- Rosette >60 >=60 BUN Creatinine Ratio 23.1 Calcium 8.6 8.5-10.1 mg/dL Bilirubin Total 1.4 0.2-1.0 mg/dL Aspartate Amino Transferase 19 15-37 U/L Alanine Aminotransferase 34 14-59 U/L Alkaline Phosphatase 125 46-116 U/L Total Protein 7.5 6.4-8.2 g/dL Albumin Level 3.6 3.4-5.0 g/dL Globulin 3.9 Albumin Globulin Ratio 0.9 Performing Lab: see note ML - [facility] LIPID PROFILE Reviewed date:02/24/2024 02:39:12 PM Interpretation: Performing Lab: Notes/Report: [facility] , Triglycerides 143 <=150 mg/dL Cholesterol 194 <=200 mg/dL HDL Cholesterol 43 40-60 mg/dL > or =60 mg/dl - LOW CARDIOVASCULAR RISK <40 mg/dl - HIGH CARDIOVASCULAR RISK LDL Cholesterol Calculated 122.4 <100 mg/dl OPTIMAL 160-189 mg/dl HIGH >190 mg/dl VERY HIGH 100-129 mg/dl NEAR OR ABOVE OPTIMAL 130-159 mg/dl BORDERLINE HIGH VLDL CHOLESTEROL 28.6 Chol HDL Ratio 4.5 >11.0 HIGH RISK 3.3 - 4.4 LOW RISK 7.1 - 11.0 MODERATE RISK 4.4 - 7.1 AVERAGE RISK Performing Lab: see note ML - [facility] GLYCOHEMOGLOBIN A1C Reviewed date:02/24/2024 02:39:12 PM Interpretation: Performing Lab: Notes/Report: [facility] , Glycohemoglobin A1C 5.9 4.5-6.2 % ACTION SUGGESTED ADA RECOMMENDED LIMIT 4.0 - 6.0 > 7.0 ADA THERAPEUTIC TARGET < 7.0 Estimated Average Glucose 123 Performing Lab: see note ML - [facility] FREE T3 Reviewed date:02/24/2024 02:39:12 PM Interpretation: Performing Lab: Notes/Report: [facility] , Free T3 2.06 2.18-3.98 pg/mL Performing Lab: see note ML - [facility] LB INSULIN Reviewed date:03/05/2024 12:03:57 PM Interpretation: Performing Lab: Notes/Report: [facility] , Insulin 23.3 2.6-24.9 uIU/mL [address] [place], [place] [id number] Agriculture Sales Account Manager: Paul Galdamez PhD, Phone: [phone] Performed at: [facility] Performing Lab: see note LC - [facility] LB MM tomosynthesis screening B I Reviewed date:09/26/2024 10:54:21 AM Interpretation: Performing Lab: Notes/Report: Source Facility: [facility] [place] [address] [place] [address] Mammography Report Signed Patient: FABIAN SUN MR#: [id number] : 1965 Acct:[id number] Age/Sex: 59 / F ADM Date: 09/26/24 Loc: MAMMO Attending Dr: BELLA CORLEY Ordering Physician: BELLA CORLEY Results: Date of Service: 09/26/24 Follow Up: Procedure(s): MM tomosynthesis screening BI Accession Number(s): [id number] cc: BELLA CORLEY Patient Name: FABIAN SUN MR#: [id number] : 1965 Exam Date: 09/26/2024 Ordering Doctor: BELLA CORLEY [facility] RADIOLOGY REPORT PROCEDURE: MM TOMOSYNTHESIS SCREENING BI COMPARISON: MG MAMM SCREEN 3D CUCA CAD, 09/08/2022. MM TOMOSYNTHESIS SCREENING BI, 09/21/2023. INDICATIONS: Screening Calculator Name NCI Breast Cancer Risk Assessment Tool 5 Year Breast Cancer Risk 1.30% Lifetime Breast Cancer Risk 6.10% Personal Breast Cancer No Personal Ovarian Cancer No Treatments None Family Cancers Mother with lung cancer at age 84; Sister with skin cancer at age 50; Father with skin cancer at age 60. LOCATION: [facility] BREAST COMPOSITION: The breasts are heterogeneously dense,which may obscure small masses. FINDINGS: DIAGNOSTIC CATEGORY 2--BENIGN FINDING. NO CHANGE FROM COMPARISON. Scattered benign-appearing calcifications are present. Scattered benign-appearing lymph nodes are present. RIGHT BREAST: No significant suspicious finding. LEFT BREAST: No significant suspicious finding. Stable micro clip marker lower outer quadrant, mid posterior breast. RECOMMENDATIONS: ROUTINE MAMMOGRAM AND CLINICAL EVALUATION IN 12 MONTHS. PLEASE NOTE: A NORMAL MAMMOGRAM DOES NOT EXCLUDE THE POSSIBILITY OF BREAST CANCER. A CLINICALLY SUSPICIOUS PALPABLE LUMP SHOULD BE BIOPSIED. Dictated by: Delonte Jackson MD on 09/26/2024 at 09:51 Approved by: Delonte Jackson MD on 09/26/2024 at 09:55 Dictated By: Delonte Jackson M.D. Signed By: 09/26/24 0956 DD/ TD/TT: Clinical Nursing Professor: [place] [address] Mammography Report Signed Patient: FABIAN SUN MR#: [id number] : 1965 Acct:[id number] Age/Sex: 59 / F ADM Date: 09/26/24 Loc: MAMMO Attending Dr: BELLA CORLEY Ordering Physician: BELLA CORLEY Results: Date of Service: 09/26/24 Follow Up: Procedure(s): MM tomosynthesis screening BI Accession Number(s): [id number] cc: BELLA CORLEY Patient Name: FABIAN SUN MR#: [id number] : 1965 Exam Date: 09/26/2024 Ordering Doctor: STACY CORLEY [facility] RADIOLOGY REPORT PROCEDURE: MM TOMOSYNTHESIS SCREENING BI COMPARISON: MG MAMM SCREEN 3D CUCA CAD, 09/08/2022. MM TOMOSYNTHESIS SCREENING BI, 09/21/2023. INDICATIONS: Screening Calculator Name NCI Breast Cancer Risk Assessment Tool 5 Year Breast Cancer Risk 1.30% Lifetime Breast Canc er Risk 6.10% Personal Breast Canc er No Personal Ovarian Can cer No Treatments None Family Cancers Mothe r with lung cancer at age 84; Sister with skin cancer at age 50; Father wi th skin cancer at age 60. LOCATION: [facility] BREAST COMPOSITION: The breasts are heterogeneously dense,which may obscure small masses. FINDINGS: DIAGNOSTIC CATEGORY 2--BENIGN FINDING. NO CHANGE FROM COMPARISON. Scattered benign-appearing calcifications are present. Scattered benign-appearing lym ph nodes are present. RIGHT BREAST: No significant suspicious finding. LEFT BREAST: No significant suspicious finding. Stable micro clip marker lower outer quadrant , mid posterior breast. RECOMMENDATIONS: ROUTINE MAMMOGRAM AN D CLINICAL EVALUATION IN 12 MONTHS. PLEASE NOTE: A IVCKY L MAMMOGRAM DOES NOT EXCLUDE THE POSSIBILITY OF BREAST CANCER. A CLINICALLY SUSPICIOUS PALPABLE LUMP SHOULD BE BIOPSIED. Dictated by: Delonte Jackson MD on 09/26/2024 at 09:51 Approved by: Delonte Jackson MD on 09/26/2024 at 09:55 Dictated By: Lester Jackson M.D. Signed By: 09/26/24 0956 DD/ TD/TT: Clinical Nursing Professor: TSH Reviewed date:03/12/2024 04:35:46 PM Interpretation: Performing Lab: Notes/Report: [facility] , Thyroid Stimulating Hormone 1.162 0.358-3.740 uIU/mL Performing Lab: see note ML - [facility] LB PROF 14(COMP METB) Reviewed date:03/12/2024 04:35:46 PM Interpretation: Performing Lab: Notes/Report: [facility] , Sodium 141 136-145 mmol/L Potassium 3.2 3.5-5.1 mmol/L Chloride 102 98-107 mmol/L Carbon Dioxide 27.3 21.0-32.0 mmol/L Anion Gap 14.9 Glucose 131 74-106 mg/dL Blood Urea Nitrogen 21.0 7.0-18.0 mg/dL Creatinine 0.90 0.55-1.02 mg/dL Estimated GFR ( Gill >60 >=60 Estimated GFR (Non- Rosette >60 >=60 BUN Creatinine Ratio 23.3 Calcium 9.0 8.5-10.1 mg/dL Bilirubin Total 1.3 0.2-1.0 mg/dL Aspartate Amino Transferase 25 15-37 U/L Alanine Aminotransferase 36 14-59 U/L Alkaline Phosphatase 123 46-116 U/L Total Protein 8.1 6.4-8.2 g/dL Albumin Level 3.7 3.4-5.0 g/dL Globulin 4.4 Albumin Globulin Ratio 0.8 Performing Lab: see note ML - [facility] LB FREE T4 Reviewed date:03/12/2024 04:35:46 PM Interpretation: Performing Lab: Notes/Report: [facility] , Free T4 1.00 0.76-1.46 ng/dL Performing Lab: see note ML - [facility] FREE T3 Reviewed date:03/12/2024 04:35:46 PM Interpretation: Performing Lab: Notes/Report: [facility] , Free T3 2.25 2.18-3.98 pg/mL Performing Lab: see note ML - [facility] LB PROF 14(COMP METB) Reviewed date:04/02/2024 03:29:39 PM Interpretation: Performing Lab: Notes/Report: [facility] , Sodium 142 136-145 mmol/L Potassium 3.5 3.5-5.1 mmol/L Chloride 104 98-107 mmol/L Carbon Dioxide 28.0 21.0-32.0 mmol/L Anion Gap 13.5 Glucose 95 74-106 mg/dL Blood Urea Nitrogen 23.0 7.0-18.0 mg/dL Creatinine 0.86 0.55-1.02 mg/dL Estimated GFR ( Gill >60 >=60 Estimated GFR (Non- Rosette >60 >=60 BUN Creatinine Ratio 26.7 Calcium 9.1 8.5-10.1 mg/dL Bilirubin Total 0.9 0.2-1.0 mg/dL Aspartate Amino Transferase 21 15-37 U/L Alanine Aminotransferase 31 14-59 U/L Alkaline Phosphatase 128 46-116 U/L Total Protein 7.4 6.4-8.2 g/dL Albumin Level 3.6 3.4-5.0 g/dL Globulin 3.8 Albumin Globulin Ratio 0.9 Performing Lab: see note ML - [facility] LB Reason For Referral No Information Medications Medication SIG (Take, Route, Frequency, Duration) Notes Start Date End Date Status Viberzi 100 mg TAKE 1 TABLET BY ROLDAN TH TWICE DAILY WITH FOOD for 30 01/25/2025 Active glipiZIDE 5 MG take 1 tablet by roldan th twice a day for 30 Active Womens 50+ Multi Vitamin - as directed Orally Active CPAP Supplies -- Mask and Tubing Active Vitamin C 1000 MG 1 tablet Orally Once a day Active L-Lysine 1000 MG as directed Orally Active hydroCHLOROthiazide 25 MG 1 tablet in e morning Orally Once a day for 90 days Active Ozempic (0.25 or 0.5 MG/DOSE ) 2 MG/3ML INJECT 0.5mg SUBCUTANEOUSLY ONCE A WEEK for 28 Active Potassium Chloride Marycruz ER 1 0 MEQ 1 tablet with food Orally Twice a day for 90 days 03/12/2024 Active Losartan Potassium 100 MG 1 tablet Orall y Once a day for 90 days Active Levothyroxine Sodium 75 MCG take 1 table t by mouth every morning ON AN EMPTY STOMACH Orally Once a day for 90 days Active metFORMIN HCl ER 500 MG take 1 tablet by mouth twice a day for 30 Active Lovastatin 10 MG take 1 tablet by roldan th WITH EVENING MEAL for 30 Active Social History Tobacco Use: Social History Observation Description Date Details (start date - stop date) Never Smoker NA - NA Tobacco Use/Smoking Question Answer Notes Patient is a nonsmoker Alcohol Screen (Audit-C) Question Answer Notes Did you have a drink containing alcohol in the p ast year? No Points 0 Interpretation Negative AUDIT-C (Standard) Question Answer Notes Did you have a drink containing alcohol in the p ast year? No Points 0 Interpretation Negative Problems Problem Type SNOMED Code ICD Code Onset Dates Problem Status W/U Status Risk Notes Problem 633142370 Type 2 diabetes mellitus without complications (E11.9) Active confirmed Problem Irritable bowel syndrome with diarrhea (505108544) Irritable bowel syndrome with diarrhea (K58.0) Active confirmed Problem Impaired fasting glucose (095920701) Impaired fasting glucose (R73.01) Active confirmed Problem Hyperlipidemia (02909608) Hyperlipidemia (E78.5) Active confirmed Problem Hypertension (92951424) Hypertension (I10) Active confirmed Problem Hypothyroid (10077292) Hypothyroid (E03.9) Active confirmed Problem Arthritis (9595439) Arthritis (M19.90) Active confirmed Problem Abnormal perimenopausal bleeding (001747712) Abnormal perimenopausal bleeding (N92.4) Active confirmed Problem Elevated liver enzymes level (636672786) Elevated LFTs (R79.89) Active confirmed Problem Well adult (876276871) Well adult (Z00.00) Active confirmed Problem Overweight (198674211) Over weight (E66.3) Active confirmed Problem Edema (604795913) Bilateral bryce a of lower extremity (R60.0) Active confirmed Problem Routine gynecologic examination done (13687292611418) Visit for routine lyric writer exam (Z01.419) Active confirmed Problem Pain in limb (70266810) Pain in extremity (M79.609) Active confirmed Problem Perimenopausal disorder (748813899) Perimenopausal disorder (N95.9) Active confirmed Problem Obstructive sleep apnea of adult (8781388022674) Obstructive sleep apnea of adult (G47.33) Active confirmed Problem Morbid obesity (913750313) Body mass index (BMI) of 40.0 to 49.9 (E66.01) Active confirmed Problem Human papillomavirus infection (537480600) HPV (human papilloma virus) infection (B97.7) Active confirmed Vital Signs Blood pressure diastolic 70 mm Hg 08/29/2024 Height 68 in 08/29/2024 Blood pressure systolic 128 mm Hg 08/29/2024 Weight 251.4 lbs 08/29/2024 BMI 38.22 kg/m2 08/29/2024 Encounters Encounter Location Date Provider Diagnosis [facility] [address] [place] [address] 02/08/2024 BELLA CORLEY Wellness examination Z00.00 [facility] [address] [place] [address] 08/29/2024 Bella Corley Irritable bowel syndrome with diarrhea K58.0 [facility] [address] [place] [address] 02/08/2024 BELLA CORLEY [facility] [address] [place] [address] 02/14/2024 BELLA CORLEY [facility] [address] [place] [address] 02/24/2024 BELLA CORLEY Hypothyroid E03.9 an d Hypokalemia E87.6 [facility] [address] [place] [address] 03/12/2024 BELLA CORLEY Hypokalemia E87.6 [facility] [address] [place] [address] 03/12/2024 Bella Corley Hypokalemia E87.6 [facility] [address] [place] [address] 04/02/2024 Bella Corley [facility] [address] [place] [address] 05/07/2024 Bella Corley Hypokalemia E87.6 [facility] [address] [place] [address] 05/07/2024 Bella Corley [facility] [address] [place] [address] 06/07/2024 Bella Corley [facility] [address] [place] [facility] [place] [address] 08/27/2024 Bella Corley [facility] [address] [place] [facility] [place] [place] [address] 08/27/2024 Bella Corley Hypokalemia E87.6 [facility] [address] [place] [facility] [place] [place] [address] 09/26/2024 Bella Corley [facility] [address] [place] [facility] [place] [address] 10/08/2024 Bella Corley [facility] [address] [place] [facility] [place] [place] [address] 10/08/2024 Bella Corley [facility] [address] [place] [facility] [place] [place] [address] 11/20/2024 Bella Corley [facility] [address] [place] [place] [place] [address] 01/28/2025 Bella Corley Wellness examination Z00.00 Assessments Encounter Date Diagnosis (ICD Code) Assessment Notes Treatment Notes Treatment Clinical Notes Section Notes 02/08/2024 Wellness examination (ICD-10 - Z00.00) ROS done exam done continue monitor BP mammogram encouraged continue counseling fu 6 m, prn 08/29/2024 Irritable bowel syndrome with diarrhea (ICD-10 - K58.0) work on diet continue DENIA Loomis signed 02/24/2024 Hypothyroid (ICD-10 - E03.9) 02/24/2024 Hypokalemia (ICD-10 - E87.6) 03/12/2024 Hypokalemia (ICD-10 - E87.6) 03/12/2024 Hypokalemia (ICD-10 - E87.6) 05/07/2024 Hypokalemia (ICD-10 - E87.6) 08/27/2024 Hypokalemia (ICD-10 - E87.6) 01/28/2025 Wellness examination (ICD-10 - Z00.00) Plan Of Treatment Pending Test Test Name Order Date CMP (COMPLETE METABOLIC PANEL) CMP (COMPLETE METABOLIC PANEL) 06/14/202 4 CMP (COMPLETE METABOLIC PANEL) 4 HEMOGLOBIN A1C (GLYCO) 01/28/2025 HEMOGLOBIN A1C (GLYCO) 08/01/2023 HEMOGLOBIN A1C (GLYCO) 02/08/2024 IRON, TOTAL 01/28/2025 LIPID PANEL (CHOL/TRIG/HDL/LDL) 01/29/20 25 LIPID PANEL (CHOL/TRIG/HDL/LDL) 02/08/20 24 CBC WITH DIFF 02/08/2024 VITAMIN D, 25 LEVEL (TOTAL) 01/28/2025 T3 FREE, T4 FREE and TSH 02/24/2024 Insulin Level 02/08/2024 Insulin Level 01/28/2025 STOOL OCCULT BLOOD 02/08/2024 THYROID PANEL (T4/TSH/FREE T3) 4 THYROID PANEL (T4/TSH/FREE T3) 5 CMP (COMP MET HERNANDEZ) w/eGFR CKD-EPI 2024 CBC WITH DIFF 01/28/2025 Next Appt Details Provider Name:Bella preston, 02/07/2025 08:30:00 AM, [address] [place], [address], Insurance Providers Payer Name Payer Address Payer Phone Subscriber Number Group Number Insured Name Patient Relationship to Insured Coverage Start Date Coverage End Date [employer] ACCESS PPO PLUS LOCAL PLAN [address] [place] [address] [id number] Fabian Sun Self - patient is the insured Medical (General) History Medical History History ICD Code HPV (human papilloma virus) infection B9 7.7 Over weight E66.3 Arthritis M19.90 Body mass index (BMI) of 40.0 to 49.9 E6 6.01 Bilateral edema of lower extremity R60.0 Hyperlipidemia E78.5 Visit for routine lyric writer exam Z01.419 Conjunctivitis H10.9 Sinusitis J32.9 Diabetes mellitus, type 2 E11.9 Well adult Z00.00 Impaired fasting glucose R73.01 Elevated LFTs R79.89 Obstructive sleep apnea of adult G47.33 Hypothyroid E03.9 Hypertension I10 Perimenopausal disorder N95.9 Pain in extremity M79.609 Irritable bowel syndrome with diarrhea K 58.0 Abnormal perimenopausal bleeding N92.4 Surgical History Surgery Date(Month/Year) Cyst removal 1989 T&A 1968
--- OUTSIDE RECORDS SUMMARY | 2025-02-01 08:42 | XMS_ITS | Clinical Summary ---
Author Organization [facility] tem Address [id number] [address] [place] [address] Care Team Providers Care Bioinformaticist Name Role Phone Javad Turner MD Primary Care Provider [phone] Allergies Active Allergy Reactions Criticality Noted Date Comments Azithromycin 03/20/2024 Penicillins 03/20/2024 Medications * This document contains information received from the source organization and may not represent a complete record from that organization. levothyroxine (SYNTHROID, LEVOTHROID) 75 MCG tablet Take 1 tablet (75 mcg total) by mouth every morning before breakfast. Take on empty stomach Active lovastatin (MEVACOR) 10 mg tablet 1 tablet (10 mg total). Active VIBERZI 100 mg tablet Take 1 tablet (100 mg total) by mouth in the morning and 1 tablet (100 mg total) in the evening. Take with meals. Active metFORMIN XR (GLUCOPHAGE XR) 500 mg 24 hr tablet Take 1 tablet (500 mg total) by mouth. 4 Active glipiZIDE (GLUCOTROL) 5 mg tablet Take 1 tablet (5 mg total) by mouth in the morning and 1 tablet (5 mg total) in the evening. Take with meals. Active potassium chloride (KLOR-CON M 10) 10 MEQ CR tablet Take 1 tablet (10 mEq total) by mouth. 4 Active hydroCHLOROthi azide (HYDRODIURIL) 25 mg tablet 4 Active losartan (COZAAR) 100 mg tablet Take 1 tablet (100 mg total) by mouth. Active OZEMPIC 0.25 mg or 0.5 mg (2 mg/3 mL) pen injector INJECT 0.5mg SUBCUTANEOUSLY ONCE A WEEK Active lysine 1,000 mg tablet Take by mouth. Activ e Active Problems Problem Noted Date Diagnosed Date Major depressive disorder, recurrent episode, mo catyate 08/28/2020 Family History Medical History Relation Name Comments Hypertension Father Stefan Richardson Arthritis Maternal Grandmother Sue Paul Lung cancer Mother Karon Richardson Miscarriages / Stillbirths Mother Karon Richardson Relation Name Status Comments Father Stefan Richardson Maternal Grandmother Sue Paul Mother Karon Richardson Social History Tobacco Use Types Packs/Day Years Used Date Smoking Tobacco: Never Smokeless Tobacco: Never Tobacco Cessation:Counseling Given: Not Answered Alcohol Use Standard Drinks/Week Comments Never 0 (1 standard drink = 0.6 oz pur e alcohol) Childcare Answer Date Recorded Childcare Unknown 02/14/2019 Employment Answer Date Recorded Employment Unknown 02/14/2019 Purpose - Life Answer Date Recorded Purpose and direction in life Unknown Comments No Sex and Gender Information Value Date Recorded Sex Assigned at Not on file Legal Sex Female 11:53 AM EDT Gender Identity Not on file Sexual Orientation Not on file Last Filed Vital Signs Vital Sign Reading Time Taken Comments Blood Pressure 142/88 04/24/2024 8:52 AM EDT Pulse - - Temperature - - Respiratory Rate - - Oxygen Saturation - - Inhaled Oxygen Concentration - - Weight 117.5 kg (259 lb) 04/24/2024 8:52 AM EDT Height 172.7 cm (5' 8 ) 04/24/2024 8:52 AM EDT Body Mass Index 39.38 04/24/2024 8:52 AM EDT Plan of Treatment Health Maintenance Due Date Last Done Comments Depression Screening 1975 Adult BMI Follow Up Plan 1981 Pap Smear 1984 Colonoscopy 2008 COVID-19 Vaccine (2023-2 5 season) 2024 06/13/2023, 07/03/2022, 08/22/2021, Additional history exists Adult BMI Screening 04/24/2025 04/24/2024 Tobacco Screening 04/24/2025 04/24/2024 Influenza Vaccine 05/13/2025 06/13/2023, , 06/20/2021, Additional history exists DTaP,Tdap and Td Vaccines (2 - Td or Tdap) 03/09/2029 03/09/2019 Zoster (Shingles) Vaccine Completed 06/26/2019, 02/2019 Medical Devices Not on file Insurance [employer]M Care Teams Bioinformaticist Relationship Specialty Start Date End Date Javad Turner MD PCP - General Family Medicine 06/12/19
--- OUTSIDE RECORDS SUMMARY | 2025-02-01 08:42 | XMS_ITS | Clinical Summary ---
Author Organization [facility] Healthcare Address [address] [place] [address] Care Team Providers Care Psychiatric Specialist Name Role Phone Unavailable Primary Care Provider Unavailabl e Allergies Active Allergy Reactions Criticality Noted Date Comments Penicillins 03/20/2024 Azithromycin 03/20/2024 Medications Viberzi 100 MG tablet Take 1 tablet by mouth Take with food. 4 Active glipiZIDE (Glucotrol) 5 MG tablet Take 5 mg by mouth in the morning and 5 mg in the evening. Take with meals. 4 Active hydroCHLOROthi azide (HYDRODiuril) 25 MG tablet 4 Active levothyroxine (Synthroid, Levoxyl) 75 MCG tablet Take 75 mcg by mouth in the morning. Take on an empty stomach.. 4 Active losartan (Cozaar) 100 MG tablet Take 100 mg by mouth Daily 4 Active lovastatin (Mevacor) 10 MG tablet Take 10 mg by mouth in the evening. Take with meals 4 Active metFORMIN XR (Glucophage-XR ) 500 MG 24 hr tablet 4 Active potassium chloride CR (Klor-Con M10) 10 MEQ ER tablet Take 10 mEq by mouth Take with food. 4 Active Ozempic, 0.25 or 0.5 MG/DOSE, 2 MG/3ML solution pen-injector INJECT 0.5mg SUBCUTANEOUSLY ONCE A WEEK 4 Active triamcinolone (Kenalog) 0.1 % creamIndicatio ns:Venous stasis dermatitis Apply topically 2 (two) times a day as needed for rash 240 g 11 4 Active nystatin (Mycostatin) 006265 UNIT/GM powderIndicati ons:Erythema intertrigo Apply to the affected area, twice daily when flared or for maintenance, 30 day supply 60 g 11 5 Active hydrocortisone 2.5 % creamIndicatio ns:Erythema intertrigo Apply thin layer to affected areas bid prn for flares 60 g 11 5 Active Active Problems No known active problems Encounters Date Type Department Care Team Description 01/10/2025 3:20 PM EDT Office Visit [facility] [address] [place] [phone] Melly Rodríguez MD Venous stasis dermatitis (Primary Dx); EIC (epidermal inclusion cyst); Skin tag; Melanocytic nevus of trunk 01/10/2025 Bamboo flowsheet [facility] [address] [place] [phone] Melly Rodríguez MD 01/10/2025 Travel 01/09/2025 Travel from Last 3 Months Social History Tobacco Use Types Packs/Day Years Used Date Smoking Tobacco: Never Smokeless Tobacco: Never Tobacco Cessation:Counseling Given: Not Answered Comments Unknown Sex and Gender Information Value Date Recorded Sex Assigned at Not on file Legal Sex Female 7:25 PM EDT Gender Identity Not on file Sexual Orientation Straight 05/15/2024 8: 51 AM EDT Plan of Treatment Upcoming Encounters Date Type Department Care Team (Late st Contact Info) Description 01/14/2026 3:30 PM EDT Office Visit [facility] [address] [place] [phone] Melly Rodríguez MD [address] [facility] [address] [place] [address] Health Maintenance Due Date Last Done Comments CT Colonography 1963 Colonoscopy 1963 Colorectal Cancer Screening 1963 FIT-DNA 1963 FIT 1963 FOBT 1963 Sigmoidoscopy 1963 Pap Smear 1984 Cervical Cancer Screening 1993 HPV/Cotest 1993 Mammogram 2003 Influenza Vaccine (Season Ended) 2025 06/13/2023, 07/03/2022, 06/20/2021, Additional history exists Insurance
[2025-02-01 09:10] LABS: Basophils Percent Auto 0.4 % (0.2-2.0); Eosinophils Percent Auto 0.5 % (0.9-7.0); Hematocrit 40.3 % (36.0-48.0); Hemoglobin 13.7 g/dL (12.0-16.0); Immature Granulocytes Abs Auto 0.03 10^3/uL (0.00-0.03); Immature Granulocytes Pct Auto 0.4 % (0.0-0.5); Lymphocytes Percent Auto 26.8 % (20.5-60.0); Mean Corpuscular Hemoglobin 31.4 pg (26.7-34.0); Mean Corpuscular Volume 92.2 fL (81.0-99.0); Mean Platelet Volume 10.7 fL (9.5-13.5); Monocytes Absolute Auto 0.5 10^3/uL (0.3-0.8); Monocytes Percent Auto 6.2 % (1.7-12.0); Neutrophils Absolute Auto 4.8 10^3/uL (1.4-6.5); Neutrophils Percent Auto 65.7 % (43.0-75.0); Platelet Count 217 10^3/uL (150-450); Red Blood Count 4.37 10^6/uL (4.20-5.40); Red Cell Distribution Width 13.2 % (11.0-15.0); White Blood Count 7.3 10^3/uL (4.0-11.0)
[2025-02-01 09:34] LABS: Estimated Average Glucose 120 mg/dL; Glycohemoglobin A1C 5.8 % (4.5-6.2)
[2025-02-01 09:53] LABS: Alanine Aminotransferase 26 U/L (14-59); Albumin Level 3.8 g/dL (3.4-5.0); Alkaline Phosphatase 126 U/L (46-116); Anion Gap 15.1; Aspartate Amino Transferase 17 U/L (15-37); BUN Creatinine Ratio 23.4; Bilirubin Total 1.1 mg/dL (0.2-1.0); Calcium 9.2 mg/dL (8.5-10.1); Carbon Dioxide 27.8 mmol/L (21.0-32.0); Chloride 105 mmol/L (98-107); Chol HDL Ratio 3.7; Cholesterol 168 mg/dL (<=200); Estimated GFR (African America >60 (>=60 mL/min/1.73m^2); Estimated GFR (Non-African Ame >60 (>=60 mL/min/1.73m^2); Free T3 2.78 pg/mL (2.18-3.98); Globulin 3.7 g/dL; Glucose 91 mg/dL (74-106); HDL Cholesterol 46 mg/dL (40-60); LDL Cholesterol Calculated 98.2 mg/dL; Potassium 3.9 mmol/L (3.5-5.1); Sodium 144 mmol/L (136-145); Total Protein 7.5 g/dL (6.4-8.2); Triglycerides 119 mg/dL (<=150); VLDL CHOLESTEROL 23.8 mg/dL
[2025-02-02 02:07] LABS: Insulin 27.9 uIU/mL (2.6-24.9)
== END 2025-02-01 08:38 | disposition home or self-care (01) ==
LOC: LAB 08:39
PROVIDERS: PCP Nurse Practitioner Family; Visit Provider Nurse Practitioner Family
DX: Z00.00 Encounter for general adult medical examination without abnormal findings (principal)
CPT/HCPCS: 36415; 80053; 80061; 82306; 83036; 83525; 83540; 84436; 84443; 84481; 85025